=== PATIENT | female | born 2000 | race Caucasian/White ===

== ENCOUNTER 2020-06-30 06:58 | Outpatient (REF) | payer OTHER, SELFPAY ==
[2020-06-30 07:29] LABS: COVID-19 Test Negative (Negative); IDNOW Serial# 55D5AD1C
== END 2020-06-30 06:59 | disposition home or self-care (01) ==
LOC: HO.LAB 06:58
PROVIDERS: Visit Provider Internal Medicine
DX: Z20.828 Contact with and (suspected) exposure to other viral communicable diseases (principal)
CPT/HCPCS: 87635; C9803

== ENCOUNTER 2020-07-26 07:12 | Outpatient (REF) | payer OTHER, SELFPAY ==
[2020-07-26 07:50] LABS: IDNOW Serial# 9DD0AD1C
[2020-07-26 07:55] LABS: COVID-19 Test Positive (Negative)
== END 2020-07-26 07:13 | disposition home or self-care (01) ==
LOC: HO.EMPCOV 07:12
PROVIDERS: Visit Provider Internal Medicine
DX: Z20.828 Contact with and (suspected) exposure to other viral communicable diseases (principal)
CPT/HCPCS: 87635

== ENCOUNTER 2020-08-07 11:26 | Outpatient (REF) | payer OTHER, SELFPAY ==
[2020-08-07 13:01] LABS: Alanine Aminotransferase 23 U/L (0-31); Albumin Level 4.3 g/dL (3.5-5.0); Alkaline Phosphatase 61 U/L (39-117); Aspartate Amino Transferase 22 U/L (5-31); Bilirubin Direct < 0.2 mg/dL (0.0-0.5); Bilirubin Total 0.2 mg/dL (0.0-1.0); Cholesterol 228 mg/dL; HDL Cholesterol 59 mg/dL; LDL Cholesterol Calculated 116 mg/dl; Total Protein 7.3 g/dL (6.5-8.0); Triglycerides 269 mg/dL
[2020-08-07 13:08] LABS: HCG Quantitative < 2 mIU/mL
[2020-08-07 13:49] LABS: Reflex LDLD? No
== END 2020-08-07 11:27 | disposition home or self-care (01) ==
LOC: HO.LAB 11:26
PROVIDERS: PCP Physician Assistant; Visit Provider Physician Assistant Medical
DX: L70.0 Acne vulgaris (principal); Z79.899 Other long term (current) drug therapy
CPT/HCPCS: 36415; 80061; 80076; 84702

== ENCOUNTER 2020-12-21 11:39 | Outpatient (REF) | payer OTHER, SELFPAY ==
[2020-12-21 13:44] LABS: Alanine Aminotransferase 12 U/L (0-31); Albumin Level 4.3 g/dL (3.5-5.0); Alkaline Phosphatase 77 U/L (39-117); Aspartate Amino Transferase 23 U/L (5-31); Bilirubin Direct 0.2 mg/dL (0.0-0.5); Bilirubin Total 0.6 mg/dL (0.0-1.0); Cholesterol 247 mg/dL; HDL Cholesterol 65 mg/dL; LDL Cholesterol Calculated 148 mg/dl; Total Protein 7.4 g/dL (6.5-8.0); Triglycerides 170 mg/dL
== END 2020-12-21 11:40 | disposition home or self-care (01) ==
LOC: HO.LAB 11:39
PROVIDERS: PCP Physician Assistant; Visit Provider Physician Assistant Medical
DX: L70.0 Acne vulgaris (principal); L85.3 Xerosis cutis; E78.00 Pure hypercholesterolemia, unspecified; Z79.899 Other long term (current) drug therapy
CPT/HCPCS: 36415; 80061; 80076

== ENCOUNTER 2021-02-22 09:28 | Outpatient (REF) | payer OTHER, SELFPAY ==
[2021-02-22 14:35] LABS: CT PCR NOT DETECTED (Not Detect.); NG PCR NOT DETECTED (Not Detect.)
[2021-02-23 10:47] LABS: BV Int Neg Control Negative (Negative); BV Int Pos Control Positive (Positive)
== END 2021-02-22 09:29 | disposition home or self-care (01) ==
LOC: HO.LAB 09:28
PROVIDERS: PCP Physician Assistant; Visit Provider Advanced Practice Midwife
DX: Z01.419 Encounter for gynecological examination (general) (routine) without abnormal findings (principal); Z11.3 Encounter for screening for infections with a predominantly sexual mode of transmission; L65.9 Nonscarring hair loss, unspecified
CPT/HCPCS: 87480; 87491; 87510; 87591; 87660; 88142

== ENCOUNTER 2021-02-23 10:53 | Outpatient (REF) | payer OTHER, SELFPAY | END 2021-02-23 10:54 | disposition home or self-care (01) | LOC: HO.LAB 10:53 | PROVIDERS: Visit Provider Advanced Practice Midwife | DX: Z13.89 Encounter for screening for other disorder (principal) ==

== ENCOUNTER 2021-03-04 12:13 | Outpatient (REF) | payer OTHER, SELFPAY ==
[2021-03-04 13:47] LABS: Thyroid Stimulating Hormone 0.98 uIU/mL (0.32-4.0)
== END 2021-03-04 12:14 | disposition home or self-care (01) ==
LOC: HO.LAB 12:13
PROVIDERS: PCP Physician Assistant; Visit Provider Advanced Practice Midwife
DX: L65.9 Nonscarring hair loss, unspecified (principal)
CPT/HCPCS: 36415; 84443

== ENCOUNTER 2022-02-11 18:16 | Outpatient (REF) | payer OTHER, SELFPAY | END 2022-02-11 18:17 | disposition home or self-care (01) | LOC: HO.LNP 18:16 | PROVIDERS: Visit Provider Nurse Practitioner Family | DX: J02.9 Acute pharyngitis, unspecified (principal) | CPT/HCPCS: 87071 ==

== ENCOUNTER 2022-02-15 11:01 | Outpatient (REF) | payer OTHER, SELFPAY ==
[2022-02-15 11:18] LABS: MANUAL DIFF FLAG NO
[2022-02-15 12:33] LABS: Basophils Percent Auto 0.4 % (0-2); Eosinophils Absolute Auto 0.1 X10*3/uL (0.0-0.4); Eosinophils Percent Auto 0.7 % (0-4); Hematocrit 39.1 % (37.0-47.0); Hemoglobin 13.4 g/dl (12.0-16.0); Imm Gran Abs Auto 0.02 X10*3/uL (0.00-0.03); Imm Gran Pct Auto 0.3 % (0.0-0.4); Lymphocytes Absolute Auto 2.8 X10*3/uL (1.2-4.9); Lymphocytes Percent Auto 39.4 % (20-40); Mean Corpuscular HGB Conc 34.3 g/dl (31.0-35.0); Mean Corpuscular Hemoglobin 30.7 pg (27.0-33.0); Mean Corpuscular Volume 89.7 fL (80.0-98.0); Mean Platelet Volume 9.7 fL (9.4-12.3); Monocytes Absolute Auto 0.7 X10*3/uL (0.1-1.2); Monocytes Percent Auto 9.5 % (2-11); Neutrophils Absolute Auto 3.6 x10*3/uL (2.0-8.3); Neutrophils Percent Auto 49.7 % (45-73); Platelet Count 334 X10*3/uL (160-400); Red Blood Count 4.36 X10*6/uL (4.20-5.50); Red Cell Distribution Width 12.2 % (11.0-16.0); White Blood Count 7.2 X10*3/uL (4.8-10.8)
[2022-02-15 12:59] LABS: Alanine Aminotransferase 9 U/L (0-31); Albumin Level 4.4 g/dL (3.5-5.0); Alkaline Phosphatase 51 U/L (39-117); Anion Gap 14 (12-20); Aspartate Amino Transferase 16 U/L (5-31); Bilirubin Total 0.3 mg/dL (0.0-1.0); Blood Urea Nitrogen 11 mg/dL (9-16); Calcium 9.3 mg/dL (8.4-10.2); Carbon Dioxide 24 mmol/L (22-29); Chloride 104 mmol/L (96-108); Estimated Glomerular Filt Rate > 60; Glucose Fasting 80 mg/dL (60-99); Potassium 4.7 mmol/L (3.3-5.1); Sodium 137 mmol/L (135-145); Total Protein 7.4 g/dL (6.5-8.0)
[2022-02-15 13:26] LABS: TSH reflex Free T4 1.39 uIU/mL (0.32-4.0); Vitamin D 25-OH Total 55.6 ng/mL (>30)
[2022-02-15 13:28] LABS: Folate 16.5 ng/mL (> or = 4.0); Vitamin B12 216 pg/mL (200-900)
[2022-02-17 23:32] LABS: TS Negative Control Passed; TS Panel A 0; TS Panel B 0; TS Positive Control Passed; TSpotTB Negative (Negative)
== END 2022-02-15 11:02 | disposition home or self-care (01) ==
LOC: HO.LAB 11:01
PROVIDERS: PCP Nurse Practitioner Family; Visit Provider Nurse Practitioner Family
DX: Z00.00 Encounter for general adult medical examination without abnormal findings (principal); Z13.1 Encounter for screening for diabetes mellitus; Z13.29 Encounter for screening for other suspected endocrine disorder; J02.9 Acute pharyngitis, unspecified
CPT/HCPCS: 36415; 80053; 82306; 82607; 82746; 84443; 85025; 86481

== ENCOUNTER 2022-02-18 14:58 | Outpatient (REF) | payer OTHER, SELFPAY ==
[2022-02-21 08:06] LABS: HBS Num1 3.86 mIU/mL (0-7.99); HBc Num1 0.05 S/CO (0.00-0.79); HBsAGNum1 0.16 S/CO (0.00-0.99); Hepatitis B Core Antibody Nonreactive (Nonreactive); Hepatitis B Surface Antigen Negative (Negative); ~HepC Num1 0.05 S/CO (0.00-0.79); ~Hepatitis B Surface Antibody NONREACTIVE (Nonreactive); ~Hepatitis C Antibody Nonreactive (Nonreactive)
[2022-02-21 17:12] LABS: Mumps Virus IgG Antibody >300.00 AU/mL; Rubella IgG Antibody 1.38 Index; Rubeola IgG (Measles) >300.00 AU/mL; Varicella IgG Antibody <135.00 index
== END 2022-02-18 14:59 | disposition home or self-care (01) ==
LOC: HO.LAB 14:58
PROVIDERS: PCP Nurse Practitioner Family; Visit Provider Nurse Practitioner Family
DX: Z01.84 Encounter for antibody response examination (principal)
CPT/HCPCS: 36415; 86704; 86706; 86735; 86762; 86765; 86787; 86803; 87340

== ENCOUNTER 2022-04-27 10:35 | Outpatient (REF) | payer OTHER, SELFPAY | END 2022-04-27 10:36 | disposition home or self-care (01) | LOC: HO.LAB 10:35 | PROVIDERS: PCP Nurse Practitioner Family; Visit Provider Nurse Practitioner Family | DX: Z01.84 Encounter for antibody response examination (principal) | CPT/HCPCS: 36415; 86787 ==

== ENCOUNTER 2022-10-31 12:38 | Outpatient (REF) | payer OTHER, SELFPAY ==
[2022-11-02 07:31] LABS: HBS Num1 > 1000.00 mIU/mL (0-7.99); HBc Num1 0.04 S/CO (0.00-0.79); HBsAGNum1 0.33 S/CO (0.00-0.99); Hepatitis B Core Antibody Nonreactive (Nonreactive); Hepatitis B Surface Antigen Negative (Negative); ~HepC Num1 0.07 S/CO (0.00-0.79); ~Hepatitis B Surface Antibody REACTIVE (Nonreactive); ~Hepatitis C Antibody Nonreactive (Nonreactive)
[2022-11-03 00:53] LABS: TS Negative Control Passed; TS Panel A 1; TS Panel B 0; TS Positive Control Passed; TSpotTB Negative (Negative)
== END 2022-10-31 12:39 | disposition home or self-care (01) ==
LOC: HO.LAB 12:38
PROVIDERS: Absent Provider Nurse Practitioner Family; PCP Nurse Practitioner Family; Visit Provider Nurse Practitioner Family
DX: Z01.84 Encounter for antibody response examination (principal); Z11.1 Encounter for screening for respiratory tuberculosis
CPT/HCPCS: 36415; 86481; 86704; 86706; 86803; 87340

== ENCOUNTER 2023-02-15 14:02 | Outpatient (AMB) | payer OTHER, SELFPAY ==
[2023-02-15 14:05] VITALS: BP 102/68; PULSE 66; O2SAT 99; BMI 19.7
--- NOTE | 2023-02-15 14:05 | A.OFFPC_ITS ---
Vital Signs 02/15/23 14:05 Height 5 ft 4 in Weight 115 lb BMI 19.7 BP 102/68 Blood Pressure Location Lt brachial Position Sitting Pulse 66 Pulse Source Pulse Oximeter Temp Source Skin Pulse Oximetry (%) 99 Oxygen Delivery Method Room Air Intake Visit Reasons: PE Intake Note: Patient is here today for a physical. Reference Test Clerk Required: No Allergies No Known Allergies [No Known Allergies*] Allergy (Verified 02/15/23 14:15) Medication List - Last Reconciled 02/15/23 by JENNIFER Calderon drospirenone-ethinyl estradiol 3-0.02 mg (Skylar (28)) 1 tab PO DAILY Tobacco use date assessed: 02/15/23 Dental Screening Dental Screen Date: 02/15/23 Did you have a dental visit in the last 12 months?: Yes Did you have a dental problem in the last 6 months where you did not have access to dental care?: No Was dental information given to patient?: Patient has dentist HPI PE HPI Details Patient is a 22-year-old female who presents today for physical exam. No significant past medical history. Pap smear normal 01/2021 with [facility]. Patient has an upcoming eye exam 02/2023. Patient reports 2 maternal aunts with breast cancer and 1 aunt also with colon cancer, will refer for genetic testing. Patient reports that her mother is on tamoxifen, no diagnosis of breast cancer. No shortness of breath or chest pain. Up-to-date with immunizations. [facility], [facility] Medical History (Updated 02/15/23 @ 14:35 by JENNIFER Calderon) Acute sinusitis Dog bite Surgical History H/O elbow surgery Previous back surgery [place] teeth extracted Family History Father HTN (hypertension) Maternal Aunt Breast cancer Colon cancer Maternal Aunt Breast cancer Mother BRCA negative Social History Housing: House Alcohol intake: never Patient Tobacco Use Status: Never used Tobacco service: No Current occupational status: employed Sexual orientation: Straight/Heterosexual Gender identity: Female Cognitive needs: No Hearing needs: No Vision needs: Yes (contacts) Female Reproductive History Menstrual Age of Menarche: 16 Questionnaire PHQ-9 Over the last 2 weeks, how often have you been bothered by any of the following problems? 1. Little interest or pleasure in doing things: not at all 2. Feeling down, depressed, or hopeless: not at all 3. Trouble falling or staying asleep, or sleeping too much: not at all 4. Feeling tired or having little energy: not at all 5. Poor appetite or overeating: not at all 6. Feeling bad about yourself - or that you are a failure or have let yourself or your family down: not at all 7. Trouble concentrating on things, such as reading the newspaper or watching t elevision: not at all 8. Moving or speaking so slowly that other people could have noticed. Or the opposite - being so fidgety or restless that you have been moving around a lot more than usual: not at all 9. Thoughts that you would be better off or of hurting yourself in some way: not at all Total score: 0 Depression Screening Interpretation: Negative 86073 - PHQ-9 Billing: Yes Source: Developed by Drs. Abbe Estrada, Maryse Li, Keny Christopher and colleagues, with an educational randy from [employer]. Thrive Questionnaire Date Thrive assessed: 02/15/23 I am a: Patient What is your living situation today?: I have a steady place to live Within the past 12 months, did the food you bought not last and you didn't have the money to get more?: Never true Within the past 12 months, did you worry whether your food would run out before you got money to buy more?: Never true Do you have trouble paying for medicines?: No Do you have trouble getting transportation to medical appointments?: No Do you have trouble paying your heating and electricity bill?: No Do you have trouble taking care of your child, family member or friend?: No Do you have trouble with day-to-day activities such as bathing, preparing meals, shopping, managing finances, etc.?: No Are you currently unemployed and looking for a job?: No Are you interested in more education?: No Currently or been in a relationship where the following occur: no concerns reported AUDIT C Alcohol Use Questionnaire (AUDIT-C) 1. How often do you have a drink containing alcohol?: Never 3. How often do you have six or more drinks on one occasion?: Never Total Score: 0 Score Reviewed/Action Taken: No MADALYN-7 AMB Questionnaire MADALYN-7 Date MADALYN - 7 assessed: 02/15/23 Feeling nervous, anxious, or on edge: 0 = Not at all Not being able to stop or control worryin = Not at all Worrying too much about different things: 0 = Not at all Trouble relaxin = Not at all Being so restless that it is hard to sit still: 0 = Not at all Becoming easily annoyed or irritable: 0 = Not at all Feeling afraid as if something awful might happen: 0 = Not at all Total MADALYN-7 score (0-4 normal; 5-9 mild; 10-14 moderate; 15-21 severe): 0 Source: Developed by Drs. Abbe Estrada, Maryse Li, Keny Christopher and colleagues, with an educational randy from [employer]. MADALYN-7 Assessment Billing MADALYN-7 Assessment Tool: MADALYN-7 Assessment 46745 Review of Systems Const Denies body aches, Denies chills, Denies fever(s) and Denies headache(s) Eyes Details: Wears contact lenses ENT Denies dizziness, Denies otalgia, Denies headache(s), Denies nasal discharge, Denies sinus pain and Denies sore throat Card Denies chest pain, Denies edema, Denies lightheadedness and Denies dyspnea Resp Denies cough and Denies dyspnea GI Denies constipation, Denies diarrhea, Denies nausea and Denies vomiting Denies dysuria Musc Denies myalgias Skin/Breast Denies rash Neuro Denies dizziness and Denies headache(s) Physical exam (Primary Care) Vital Signs: Last Vital Signs Pulse 66 02/15/23 14:05 BP 102/68 02/15/23 14:05 Pulse Ox 99 02/15/23 14:05 Oxygen Delivery Method Room Air 02/15/23 14:05 BMI result Body Mass Index 19.7 Tobacco/Smoking Status: Tobacco use Status Tobacco use date assessed 02/15/23 02/15/23 14:10 Patient Tobacco Use Status Never used Tobacco 02/15/23 14:10 PHQ-9: PHQ-9 Score PHQ-9: Total score 0 02/15/23 14:10 Depression Screening Interpretation: Negative Thrive Assessment: Date of Thrive Assessment Date Thrive assessed 02/15/23 02/15/23 14:10 Currently or been in a relationship where the following occur: no concerns reported Const General: cooperative and no acute distress Orientation/consciousness: patient oriented x3 HENMT Head: Yes normocephalic and Yes atraumatic Ears: TM's normal bilaterally Face and sinus: Yes sinuses nontender Mouth: oropharynx normal and moist mucous membranes Throat: Yes posterior oropharynx normal Eyes General: appearance normal, both eyes and all related structures Pupils: Equal, round and reactive pupils present EOM: EOMs intact bilaterally Neck Neck: Yes normal visual inspection, Yes full ROM and Yes no lymphadenopathy Thyroid: Thyroid normal Resp Effort & Inspection: normal respiratory effort and able to speak in complete sentences Auscultation: clear to auscultation bilaterally, no crackles, no rales, no rhonchi and no wheezes Cardio Rate: regular rate Rhythm: regular rhythm Heart sounds: S1 normal heart sound present, S2 normal heart sound present and no murmurs GI Palpation (GI): Soft to palpation, not firm, nontender, no guarding, not rigid and no hepatosplenomegaly Auscultation: normal bowel sounds General: No CVA tenderness Back/Spine/Pelvis Back: No CVA tenderness Skin General skin exam: no rashes or lesions noted Neuro General: patient oriented x3 Cranial nerves: Yes Equal, round and reactive pupils present Gait exam (Neuro): Normal gait present Extrem General: Yes full ROM and No edema Assessment and Plan Assessment & Plan (1) Genetic testing of female: Code(s): Z13.79 - Encounter for other screening for genetic and chromosomal anomalies Plan: See HPI for details Will refer to general surgery for genetic testing (2) Screening for hypothyroidism: Code(s): Z13.29 - Encounter for screening for other suspected endocrine disorder (3) Adult general medical exam: Code(s): Z00.00 - Encounter for general adult medical examination without abnormal findings Plan: Repeat 1 year Orders: Orders Vitamin B12 and Folate Today Z00.00 - Encounter for general adult medical examination without abnormal findings Comprehensive Met. Panel Today Z00.00 - Encounter for general adult medical examination without abnormal findings TSH reflex Free T4 Today Z13. - Encounter for screening for other suspected endocrine disorder Vitamin D 25-OH Total Today Z00.00 - Encounter for general adult medical examination without abnormal findings Complete Blood Count Auto Diff Today Z00.00 - Encounter for general adult medical examination without abnormal findings Referrals General Surgery Referral Z13.79 - Encounter for other screening for genetic and chromosomal anomalies Coding Level of Care Code Est Pt Prev Care 18-39y(98990) Diagnoses Genetic testing of female Z13.79 Screening for hypothyroidism Z13.29 Adult general medical exam Z00.00 Additional Codes MADALYN-7 Assessment Billing - MADALYN-7 Assessment Tool: MADALYN-7 Assessment [id number] ([id number])
== END 2023-02-15 14:30 | disposition home or self-care (01) ==
PROVIDERS: PCP Nurse Practitioner Family; Visit Provider Nurse Practitioner Family
DX: Z13.79 Encounter for other screening for genetic and chromosomal anomalies (principal); Z13.29 Encounter for screening for other suspected endocrine disorder; Z00.00 Encounter for general adult medical examination without abnormal findings
CPT/HCPCS: 99395

== ENCOUNTER 2023-02-22 10:26 | Outpatient (REF) | payer OTHER, SELFPAY ==
[2023-02-22 10:36] LABS: MANUAL DIFF FLAG NO
[2023-02-22 11:02] LABS: Basophils Percent Auto 0.6 % (0-2); Eosinophils Percent Auto 0.6 % (0-4); Hematocrit 37.8 % (37.0-47.0); Hemoglobin 12.8 g/dl (12.0-16.0); Imm Gran Abs Auto 0.02 X10*3/uL (0.00-0.03); Imm Gran Pct Auto 0.3 % (0.0-0.4); Lymphocytes Absolute Auto 2.5 X10*3/uL (1.2-4.9); Lymphocytes Percent Auto 35.7 % (20-40); Mean Corpuscular HGB Conc 33.9 g/dl (31.0-35.0); Mean Corpuscular Hemoglobin 30.8 pg (27.0-33.0); Mean Corpuscular Volume 90.9 fL (80.0-98.0); Mean Platelet Volume 9.1 fL (9.4-12.3); Monocytes Absolute Auto 0.6 X10*3/uL (0.1-1.2); Monocytes Percent Auto 8.9 % (2-11); Neutrophils Absolute Auto 3.7 x10*3/uL (2.0-8.3); Neutrophils Percent Auto 53.9 % (45-73); Platelet Count 304 X10*3/uL (160-400); Red Blood Count 4.16 X10*6/uL (4.20-5.50); Red Cell Distribution Width 11.6 % (11.0-16.0); White Blood Count 6.9 X10*3/uL (4.8-10.8)
[2023-02-22 11:54] LABS: Alanine Aminotransferase 10 U/L (0-31); Albumin Level 4.1 g/dL (3.5-5.0); Alkaline Phosphatase 53 U/L (39-117); Anion Gap 12 (12-20); Aspartate Amino Transferase 15 U/L (5-31); Bilirubin Total 0.2 mg/dL (0.0-1.0); Blood Urea Nitrogen 15 mg/dL (9-16); Calcium 9.3 mg/dL (8.4-10.2); Carbon Dioxide 26 mmol/L (22-29); Chloride 105 mmol/L (96-108); Estimated Glomerular Filt Rate > 60; Glucose Random 107 mg/dL (60-115); Potassium 4.2 mmol/L (3.3-5.1); Sodium 139 mmol/L (135-145); Total Protein 7.3 g/dL (6.5-8.0)
[2023-02-22 12:17] LABS: TSH reflex Free T4 1.16 uIU/mL (0.32-4.0); Vitamin D 25-OH Total 66.5 ng/mL (>30)
[2023-02-22 12:29] LABS: Vitamin B12 230 pg/mL (200-900)
== END 2023-02-22 10:27 | disposition home or self-care (01) ==
LOC: HO.LAB 10:26
PROVIDERS: PCP Nurse Practitioner Family; Visit Provider Nurse Practitioner Family
DX: Z00.00 Encounter for general adult medical examination without abnormal findings (principal); Z13.29 Encounter for screening for other suspected endocrine disorder; Z20.2 Contact with and (suspected) exposure to infections with a predominantly sexual mode of transmission
CPT/HCPCS: 36415; 80053; 82306; 82607; 82746; 84443; 85025

== ENCOUNTER 2023-03-24 11:00 | Outpatient (REF) | payer OTHER, SELFPAY ==
[2023-03-24 18:22] LABS: CT PCR NOT DETECTED (Not Detect.); NG PCR NOT DETECTED (Not Detect.)
[2023-03-26 13:31] LABS: BV Int Neg Control Negative (Negative); BV Int Pos Control Positive (Positive)
== END 2023-03-24 11:01 | disposition home or self-care (01) ==
LOC: HO.LNP 11:00
PROVIDERS: PCP Nurse Practitioner Family; Visit Provider Advanced Practice Midwife
DX: Z01.419 Encounter for gynecological examination (general) (routine) without abnormal findings (principal); N92.1 Excessive and frequent menstruation with irregular cycle; Z20.2 Contact with and (suspected) exposure to infections with a predominantly sexual mode of transmission
CPT/HCPCS: 0353U; 87480; 87510; 87660

== ENCOUNTER 2023-03-24 11:00 | Outpatient (AMB) | payer OTHER, SELFPAY ==
[2023-03-24 11:04] VITALS: BMI 19.7
--- NOTE | 2023-03-24 11:04 | A.OFFVIS_ITS ---
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 She is not having any abe teacher conc erns it is working out for her to take the pills with of pill free week between 2 cycles so that she gets a period about every 2 months sometime she will let it go 3 months. She is managing the breakthrough bleeding best in this way. 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 She has no concerns about STDs but accepts testing with the pelvic exam but does not need blood work. She has a strong family he of breast cancer and is set up for genetic testing and counseling with Dr. Ortega in upcoming days before she starts back at school. She cycles for exercise and does things with her friends and classmates for relaxation. [facility] Medical History Acute sinusitis Dog bite Surgical History H/O elbow surgery Previous back surgery [place] teeth extracted Family History Father HTN (hypertension) Maternal Aunt Breast cancer Colon cancer Maternal Aunt Breast cancer Mother BRCA negative Social History Housing: House Alcohol intake: never Patient Tobacco Use Status: Never used Tobacco service: No Current occupational status: employed Sexual orientation: Straight/Heterosexual Gender identity: Female Cognitive needs: No Hearing needs: No Vision needs: Yes (contacts) Female Reproductive History Menstrual Age of Menarche: 16 Duration of menses: 3-5 days Date of last menstrual period: 02/13/23 control method: pills Total pregnancies: 0 Date of last pap smear: 02/24/21 (negative) Physical Exam Vital Signs: BMI result Body Mass Index 19.7 Const General: healthy appearing, comfortable, no acute distress, well developed and alert Nutritional Appearance: average body habitus Orientation/consciousness: patient oriented x3 Limitations: no limitations HEENT Head: Yes normocephalic Neck Neck: Yes normal visual inspection Chest Chest palpation & inspection: normal inspection of the chest Breast/axilla inspection: normal inspection of the breasts and normal inspection of the axillae Breast/axilla palpation: normal palpation of the breasts and normal palpation of the axillae Resp Effort & Inspection: normal respiratory effort GI Inspection: Yes normal to inspection, No Abdominal wall edema and No distended Palpation (GI): Soft to palpation and nontender Other: Normal external exam vagina pink moist healthy very normal healthy appearing whitish mucus cervix nulliparous uterus small midposition to anteverted, nontender mobile. adnexa nontender mobile General: Yes bladder normal to palpation External Female Exam: normal external appearance and normal appearance of the urethra Speculum Exam - Vagina: normal appearance of the vagina, normal palpation and normal vaginal discharge Speculum Exam - Cervix: normal appearance of the cervix, normal palpation and nontender Bimanual exam- vagina & uterus: normal bimanual exam, normal palpation, uterine size normal, bladder normal to palpation, consistency normal, normal palpation, uterine mobility normal, uterine shape normal, No Cervical tenderness present, non-tender and no cervical motion tenderness Bimanual Exam- Adnexa, other: normal adnexae, no masses, normal and No adnexal tenderness Neuro General: patient oriented x3 Results Reviewed Results Reviewed: Name:Jocelyn Martinez Age/Sex: 20/F Attending: Luz Maria Rick CNM : 2000 Submitted by: Luz Maria Rick CNM Copies to: MR #: [id number] ? Status: DEP REF Collected: 02/22/21 Location: .LAB Received: 02/24/21 Interpretation Satisfactory for evaluation. No endocervical cells seen. Cytolysis noted. Negative for intraepithelial lesion or malignancy. Clinical Information LMP: 01/19/2021 Previous PAP test: None Material Received ThinPrep cervical Electronically Signed By: SARAH Rider (ASCP) ? 02/25/21 1056 The Pap Test is a screening procedure with the inherent possibility of both false negative and false positive results.? Results should be interpreted in the context of historic and current clinical findi Assessment & Plan Assessment & Plan (1) Breakthrough bleeding on OCPs: Code(s): N92.1 - Excessive and frequent menstruation with irregular cycle (2) Counseling for control, oral contraceptives: Code(s): Z30.09 - Encounter for other general counseling and advice on contraception (3) Cervical cancer screening: Comment: negative pap 2020, at age 20, next Pap 2023. Code(s): Z12.4 - Encounter for screening for malignant neoplasm of cervix (4) Well woman exam with routine gynecological exam: Code(s): Z01.419 - Encounter for gynecological examination (general) (routine) without abnormal findings (5) Screen for sexually transmitted diseases: Code(s): Z11.3 - Encounter for screening for infections with a predominantly sexual mode of transmission Plan -----Discussed in this visit the following: healthy balanced diet, regular and consistent exercise, getting recommended health screens, doing the best she can for her particular health concerns, kegel exercises, pap smear screening and followup recommendations, mammography screening and SBE, normal changes in cycles in her life stage--- . Reviewed how she is taking the pills she is doing really well with this regimen and she is manipulating when she decides to have a withdrawal bleed in a way that works well for her. Reviewed all the issues with school she is doing really well she is taking care of herself she is about to be going for screening counseling visit in Dr. Ortega is a office to decide if she wants to get genetic testing for familial history of breast cancer though no one has had the BRCA gene as far she knows . She will be due for her next Pap smear in 2023. She excepted testing for GC chlamydia trich Gardnerella and [place] with the pelvic exam but declines blood work. Script for control pills sent to her [facility] closer to school. RTC 1 year. Orders: Orders Bacterial Vaginosis Panel Today Z01.419 - Encounter for gynecological examination (general) (routine) without abnormal findings CT NG by PCR Today Z01.419 - Encounter for gynecological examination (general) (routine) without abnormal findings Medications: Refilled drospirenone-ethinyl estradiol 3-0.02 mg (Skylar (28)) Patient and I spoke at the last visit about alternating 2 months of continuous pills, then 1 month with a withdrawal bleed scheduled with placebo pills. 1 tab PO DAILY 84 tabs 4RF Coding Level of Care Code Est Pt Prev Care 18-39y(31521) Diagnoses Breakthrough bleeding on OCPs N92.1 Counseling for control, oral contraceptives Z30.09 Cervical cancer screening Z12.4 Well woman exam with routine gynecological exam Z01.419 Screen for sexually transmitted diseases Z11.3
== END 2023-03-24 12:10 | disposition home or self-care (01) ==
LOC: HO.HWS 11:00
PROVIDERS: PCP Nurse Practitioner Family; Visit Provider Advanced Practice Midwife
DX: Z01.419 Encounter for gynecological examination (general) (routine) without abnormal findings (principal); N92.1 Excessive and frequent menstruation with irregular cycle; Z30.09 Encounter for other general counseling and advice on contraception; Z12.4 Encounter for screening for malignant neoplasm of cervix; Z11.3 Encounter for screening for infections with a predominantly sexual mode of transmission
CPT/HCPCS: 99395

== ENCOUNTER 2023-03-28 09:29 | Outpatient (AMB) | payer OTHER, SELFPAY ==
--- NOTE | 2023-03-28 09:31 | A.OFFVIS_ITS ---
Intake Vital Signs 03/28/23 09:40 Height 5 ft 4 in Weight 117 lb 4.575 oz BMI 20.1 BP 100/62 Blood Pressure Location Lt brachial Position Sitting Intake Visit Reasons: Genetic Consult Intake Note: Patient is seen in office for genetic testing counsult. 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 She denies any breast symptoms or previous breast problems. Her family history is significant for 2 aunts with history of breast cancer, 1 of which developed metastatic colon cancer. Her mom has not had breast cancer and was previously tested for BRCA and was determined to be negative. 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 [facility] Medical History Acute sinusitis Dog bite Surgical History H/O elbow surgery Previous back surgery [place] teeth extracted Family History Father HTN (hypertension) Maternal Aunt Breast cancer, Onset Age: 47 Colon cancer Maternal Aunt Breast cancer Mother BRCA negative Social History Housing: House Alcohol intake: never Patient Tobacco Use Status: Never used Tobacco service: No Current occupational status: employed Sexual orientation: Straight/Heterosexual Gender identity: Female Cognitive needs: No Hearing needs: No Vision needs: Yes (contacts) Female Reproductive History Menstrual Age of Menarche: 16 Review of Systems Const All systems reviewed & are unremarkable except as noted in HPI and below Physical Exam Vital Signs: Last Vital Signs BP 100/62 03/28/23 09:40 BMI result Body Mass Index 20.1 Const General: comfortable and no acute distress Nutritional Appearance: well nourished Orientation/consciousness: patient oriented x3 Limitations: no limitations HEENT Head: Yes normocephalic and Yes atraumatic Chest Other: Exam deferred Resp Effort & Inspection: normal respiratory effort, no audible wheezes, no cough and no respiratory distress GI Inspection: Yes normal to inspection Skin General skin exam: no rashes or lesions noted Neuro General: patient oriented x3 Extrem General: Yes normal to inspection Assessment & Plan Assessment & Plan (1) Genetic testing of female: Code(s): Z13.79 - Encounter for other screening for genetic and chromosomal anomalies (2) Family history of breast cancer: Code(s): Z80.3 - Family history of malignant neoplasm of breast (3) Family history of colon cancer: Code(s): Z80.0 - Family history of malignant neoplasm of digestive organs Plan 22-year-old female patient presenting with strong family history of breast cancer and colon cancer. She is at increased risk for both breast and colon cancer due to family history. We reviewed the genetic testing process, risks and benefits. She expressed understanding and wishes to proceed with the testing today. She will return in 5-6 weeks to review the results and discuss the recommendations. Coding Level of Care Code New Pt Level 3 (58749) Diagnoses Genetic testing of female Z13.79 Family history of breast cancer Z80.3 Family history of colon cancer Z80.0
[2023-03-28 09:40] VITALS: BP 100/62; BMI 20.1
== END 2023-03-28 09:55 | disposition home or self-care (01) ==
PROVIDERS: PCP Nurse Practitioner Family; Referring Provider Nurse Practitioner Family; Visit Provider Surgery
DX: Z13.79 Encounter for other screening for genetic and chromosomal anomalies (principal); Z80.3 Family history of malignant neoplasm of breast; Z80.0 Family history of malignant neoplasm of digestive organs
CPT/HCPCS: 99203

== ENCOUNTER → 2023-03-28 09:29 | Outpatient (BNVA) | payer OTHER, SELFPAY | PROVIDERS: PCP Nurse Practitioner Family; Referring Provider Nurse Practitioner Family; Visit Provider Surgery ==

== ENCOUNTER 2023-04-27 10:23 | Outpatient (AMB) | payer OTHER, SELFPAY ==
--- NOTE | 2023-04-27 10:23 | A.OFFVIS_ITS ---
Intake Vital Signs 04/27/23 10:28 Height 5 ft 4 in Weight 117 lb 2 oz BMI 20.1 BP 113/64 Blood Pressure Location Lt brachial Position Sitting Pulse 72 Intake Visit Reasons: Genetic test results *Here* Intake Note: Patient is seen in office for genetic testing results. Patient c/o: no concerns or changes, here for results. Deputy Coroner Required: No Accompanied by: Self / Same As Patient Allergies No Known Allergies [No Known Allergies*] Allergy (Verified 04/27/23 10:24) Medication List - Last Reconciled 04/27/23 by Santo Ortega MD drospirenone-ethinyl estradiol 3-0.02 mg (Skylar (28)) 1 tab PO DAILY HPI HPI Comments History of Present Illness Details 22-year-old female patient presenting fo r genetic testing due to a strong family history of breast cancer. She denies any breast symptoms or previous breast problems. Her family history is significant for 2 aunts with history of breast cancer, 1 of which developed metastatic colon cancer. Her mom has not had breast cancer and was previously tested for BRCA and was determined to be negative. 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 She returns today to review the genetic testing performed on 03/28/2023. Genetic testing revealed no clinically significant mutations identified. Her breast cancer risk score was calculated at 11.6 %, below the 20% threshold placing her at high risk for breast cancer. No variance of uncertain significance (VUS) were identified. Based on her clinical history, she was felt to be at elevated risk for colon cancer due to her maternal aunt diagnosis of metastatic colon cancer at the age of 47. Early colonoscopy was recommended at least by the age of 45. A copy of the genetic testing report was provided to the patient for her records. [facility] Medical History Dog bite Acute sinusitis Surgical History [place] teeth extracted Previous back surgery H/O elbow surgery Family History Father HTN (hypertension) Maternal Aunt Breast cancer, Onset Age: 47 Colon cancer Maternal Aunt Breast cancer Mother BRCA negative Social History Housing: House Alcohol intake: never Patient Tobacco Use Status: Never used Tobacco service: No Current occupational status: employed Sexual orientation: Straight/Heterosexual Gender identity: Female Cognitive needs: No Hearing needs: No Vision needs: Yes (contacts) Female Reproductive History Menstrual Age of Menarche: 16 Review of Systems Const All systems reviewed & are unremarkable except as noted in HPI and below Physical Exam Vital Signs: Last Vital Signs Pulse 72 04/27/23 10:28 BP 113/64 04/27/23 10:28 BMI result Body Mass Index 20.1 Const General: comfortable and no acute distress Nutritional Appearance: well nourished Orientation/consciousness: patient oriented x3 Limitations: no limitations Chest Other: Exam deferred Resp Effort & Inspection: normal respiratory effort Skin General skin exam: no rashes or lesions noted Neuro General: patient oriented x3 Extrem General: Yes normal to inspection Assessment & Plan Assessment & Plan (1) Family history of colon cancer: Code(s): Z80.0 - Family history of malignant neoplasm of digestive organs (2) Family history of breast cancer: Code(s): Z80.3 - Family history of malignant neoplasm of breast Plan 22-year-old female patient returning to review the genetic testing. No mutations of clinical significance were identified and no variance of uncertain significance were identified. Her breast cancer risk score was calculated at 11.6% which is below the 20% threshold placing her at high risk. I would still recommend she perform self examinations on a monthly basis and consider baseline mammograms at the age of 30 to 35. Early colonoscopy is also recommended as noted above. She is welcome to call for any new concerns but otherwise should follow up as needed. Coding Level of Care Code Est Pt Level 3 (10136) Diagnoses Family history of colon cancer Z80.0 Family history of breast cancer Z80.3
[2023-04-27 10:28] VITALS: BP 113/64; PULSE 72; BMI 20.1
== END 2023-04-27 10:44 | disposition home or self-care (01) ==
PROVIDERS: PCP Nurse Practitioner Family; Visit Provider Surgery
DX: Z80.0 Family history of malignant neoplasm of digestive organs (principal); Z80.3 Family history of malignant neoplasm of breast
CPT/HCPCS: 99213

== ENCOUNTER → 2023-04-27 10:23 | Outpatient (BNVA) | payer OTHER, SELFPAY | PROVIDERS: PCP Nurse Practitioner Family; Visit Provider Surgery ==

== ENCOUNTER 2023-06-21 13:10 | Outpatient (REF) | payer OTHER, SELFPAY ==
--- NOTE | ~2023-06-21 | MR_ITS ---
EXAMINATION: MR LUMBAR SPINE WITHOUT CONTRAST CLINICAL INFORMATION: Lower back pain COMPARISON: MRI of the lumbar spine 08/19/2019 TECHNIQUE: MRI of the lumbar spine was obtained using routine sequences without contrast. FINDINGS: Normal anatomic alignment. No suspicious marrow signal or focal osseous lesion. No significant marrow edema. The vertebral body heights are maintained. The intervertebral discs are of normal height and signal. The conus medullaris terminates at the level of L1-L2. The distal spinal cord is normal in appearance. The cauda equina nerve roots appear normal. No significant abnormalities of the paraspinal musculature. Limited evaluation of the intra-abdominal structures without significant abnormalities. The abdominal aorta is of normal contour and caliber. SPINAL LEVELS: L1-L2: No significant spinal canal or neuroforaminal narrowing. L2-L3: No significant spinal canal or neuroforaminal narrowing. L3-L4: No significant spinal canal or neuroforaminal narrowing. Minimal disc bulge and mild facet arthropathy. L4-L5: No significant spinal canal or neuroforaminal narrowing. Minimal disc bulge and mild facet arthropathy. L5-S1: No significant spinal canal or neuroforaminal narrowing. Mild facet arthropathy. MR/MR lumbar spine wo con IMPRESSION: Mild degenerative changes of the lower lumbar spine. No significant spinal canal stenosis, neural foraminal narrowing, or evidence of nerve impingement.
== END 2023-06-21 13:11 | disposition home or self-care (01) ==
LOC: HO.MRI 13:10
PROVIDERS: PCP Nurse Practitioner Family; Visit Provider Neurological Surgery
DX: M54.9 Dorsalgia, unspecified (principal)
CPT/HCPCS: 72148

== ENCOUNTER 2023-08-03 14:30 | Outpatient (AMB) | payer OTHER, SELFPAY ==
--- NOTE | 2023-08-03 14:37 | MHC.OFFVIS ---
Intake Vital Signs 08/03/23 14:47 Height 5 ft 4 in Weight 112 lb 4 oz BMI 19.3 BP 119/77 Blood Pressure Location Lt brachial Position Sitting Respiration 18 Pulse 68 Pulse Source Pulse Oximeter Pulse Oximetry (%) 100 Oxygen Delivery Method Room Air Intake Visit Reasons: Dorsalgia, Unspecified//Confirmed Allergies No Known Allergies [No Known Allergies*] Allergy (Verified 08/03/23 14:36) HPI HPI Comments History of Present Illness Details Jocelyn is a very pleasant 22-year-old female who presents the office today for evaluation management of her chronic lower back pain. 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 She previously underwent radiofrequency ablation 10/11/2019 with improvement in her pain for approximately 3 years. She states the pain started to return about a year ago but up until recently was not as bothersome. Pain is now causing difficulty with sleep, activities, work and school. Patient states she just returned from vacation and the plane ride was very difficult due to her pain, pain is exacerbated by sitting or standing for extended periods of time. She is currently taking Tylenol with minimal improvement. She has tried anti-inflammatory medications but they do not provide her relief. Patient has attempted physical therapy in the past which did not help, she continues with home exercise program but the pain persists. Patient denies shooting, shocking, electrical pain down either leg. Patient denies red flag symptoms including new loss of bowel, bladder or saddle anesthesia. She would like to repeat the RFA. Recent MRI reviewed, results as per below Pain today is rated as a 4/10, worse during the day and in the evenings. In terms of muscle damage condition is described as aching, stabbing, sharp and throbbing. Pain is negatively impacting patient's enjoyment life, general activity, mood, normal work, recreational activities and sleep. [facility] Medical History Dog bite Acute sinusitis Surgical History [place] teeth extracted Previous back surgery H/O elbow surgery Family History Father HTN (hypertension) Maternal Aunt Breast cancer, Onset Age: 47 Colon cancer Maternal Aunt Breast cancer Mother BRCA negative Social History Housing: House Alcohol intake: never Patient Tobacco Use Status: Never used Tobacco service: No Current occupational status: employed Sexual orientation: Straight/Heterosexual Gender identity: Female Cognitive needs: No Hearing needs: No Vision needs: Yes (contacts) Female Reproductive History Menstrual Age of Menarche: 16 Review of Systems Const All systems reviewed & are unremarkable except as noted in HPI and below Physical Exam Vital Signs: Last Vital Signs Pulse 68 08/03/23 14:47 Resp 18 08/03/23 14:47 BP 119/77 08/03/23 14:47 Pulse Ox 100 08/03/23 14:47 Oxygen Delivery Method Room Air 08/03/23 14:47 BMI result Body Mass Index 19.3 General: awake, alert, oriented. Answers questions appropriately. Fully engaged in examination. Skin: warm, dry, intact HEENT: Normocephalic. Hearing intact. Cardiac: External chest normal in appearance. Respiratory: No cough, audible wheezing or stridor. Abdomen: without gross distension. MS: No obvious swelling or deformities. Able to transition from sit to stand unassisted. Ambulates with bilaterally normal heel strike and toe off Full lumbar ROM, improvement in pain with flexion Frank negative bilaterally SLR negative bilaterally strength 5/5 BLE Neurological: Oriented to person, place, time and situation. Thought process intact. Psychiatric: Appropriate mood and affect. Good judgment and insight. Results Reviewed Results Reviewed: 06/21/2023 MR/MR lumbar spine wo con FINDINGS: Normal anatomic alignment. No suspicious marrow signal or focal osseous lesion. No significant marrow edema. The vertebral body heights are maintained. The intervertebral discs are of normal height and signal. The conus medullaris terminates at the level of L1-L2. The distal spinal cord is normal in appearance. The cauda equina nerve roots appear normal. No significant abnormalities of the paraspinal musculature. Limited evaluation of the intra-abdominal structures without significant abnormalities. The abdominal aorta is of normal contour and caliber. SPINAL LEVELS: L1-L2: No significant spinal canal or neuroforaminal narrowing. L2-L3: No significant spinal canal or neuroforaminal narrowing. L3-L4: No significant spinal canal or neuroforaminal narrowing. Minimal disc bulge and mild facet arthropathy. L4-L5: No significant spinal canal or neuroforaminal narrowing. Minimal disc bulge and mild facet arthropathy. L5-S1: No significant spinal canal or neuroforaminal narrowing. Mild facet arthropathy. IMPRESSION: Mild degenerative changes of the lower lumbar spine. No significant spinal canal stenosis, neural foraminal narrowing, or evidence of nerve impingement. Assessment & Plan Assessment & Plan (1) Lumbar spondylosis: Code(s): M47.816 - Spondylosis without myelopathy or radiculopathy, lumbar region Samira Banks is a very pleasant 22-year-old female who presented to the office today for evaluation management of her chronic lower back pain. History, physical exam and provocative testing consistent with lumbar spondylosis. Patient has exhausted conservative therapy including [id number]-[id number] medications, nonsteroidal anti-inflammatory medications, physical therapy and home exercise program. Patient had previously successful radiofrequency ablation which she would like to repeat at this time. Will schedule for fluoroscopy guided L3, L4, DR L5 RFA with anesthesia. Methocarbamol 500 mg p.o. b.i.d. as needed, patient advised on cautions for use. All questions and concerns have been answered and patient agrees with the plan. Follow up after procedure, sooner if needed. Medications: New methocarbamol No driving while taking this medication. 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
[2023-08-03 14:47] VITALS: BP 119/77; PULSE 68; RESP 18; O2SAT 100; BMI 19.3
== END 2023-08-03 15:05 | disposition home or self-care (01) ==
PROVIDERS: PCP Nurse Practitioner Family; Visit Provider Registered Nurse Emergency
DX: M47.816 Spondylosis without myelopathy or radiculopathy, lumbar region (principal)
CPT/HCPCS: 99204

== ENCOUNTER → 2023-08-03 14:30 | Outpatient (BNVA) | payer OTHER, SELFPAY | PROVIDERS: PCP Nurse Practitioner Family; Visit Provider Registered Nurse Emergency ==

== ENCOUNTER 2023-08-31 10:54 | Day surgery (SDC) | payer OTHER, SELFPAY ==
[2023-08-29 08:47] VITALS: BMI 19.2
--- NOTE | ~2023-08-31 | FL_ITS ---
EXAMINATION: FL FLUOROSCOPY WITH IMAGES CLINICAL INFORMATION: L3-L4 dorsal ramus L5 RFA. COMPARISON: MR lumbar spine 06/21/2023. TECHNIQUE: Fluoroscopy Supervised By: Dr. Tabares. Fluoroscopy Time: 1.4 minutes. Cumulative Dose: 8.09 mGy. DAP: 1.92 Gy-cm2. Images: 5. FINDINGS: Fluoroscopic guidance was provided for procedure. Multiple fluoroscopic images demonstrate 4 needles projecting lateral and posterior to the cyj-jb-fweeb lumbar spine. Please refer to operative report for more detailed evaluation. FL/FL guidance in OR IMPRESSION: Fluoroscopic guidance was provided for procedure.
[2023-08-31 11:19] VITALS: BMI 19.1
[2023-08-31 11:35] VITALS: BP 118/60; PULSE 87; RESP 16; TEMP 36.8; O2SAT 98
[2023-08-31 11:36] LABS: UPreg QC Valid YES; Urine Pregnancy NEGATIVE (NEGATIVE)
[2023-08-31] MEDS: Lactated Ringers 1,000 ML 80 ML IVCONT (11:38)
--- NOTE | 2023-08-31 11:42 | P.HPSUR_ITS ---
Pre-Procedural Eval Section A - 24 Hr Update-Section A only Date of Service: 08/31/23 The patient is an INPATIENT: No Changes since office visit: Yes Patient answered all questions The patient has been examined within 24 hours of the surgical procedure. The History & Physical has been completed within 30 days and I have reviewed it.: No Section B - Complete if H&P > 30 days Chief Complaint: Spondylosis without myelopathy or radiculopathy, Details of Present Illness: as above Relevant Family History (Specify if Yes): No Relevant Social History: None Present Medications: see Short Stay Collaborative assessment Medical History: No relevant PMH History of Previous Operations: No relevant previous surgery Allergies: Allergies Allergy/AdvReac Type Severity Reaction Status Date / Time No Known Allergies Allergy Verified 08/31/23 11:21 [No Known Allergies*] Review of Systems Sugical H&P ROS: Negative: Constitution, Cardiovascular, Respiratory, Neurolo gical, Psychiatric, Hem-Onc, Allergic/Immunologic, Gastrointestinal, Genitourinary, Musculoskeletal, Integumentary, Endocrine and Eyes/Ears/Nose/Throat Exam Surgical H&P Exam: Normal: HEENT, Normal: Heart, Normal: Lungs, Normal: Extremities, Normal: Abdomen, Normal: Skin and Normal: Neurological Plan Diagnosis/Plan: Unchanged I have reviewed the history and physical and performed a pertinent physical examination on my patient. No changes have occurred unless specified. Time Spent With Patient Time: Total time managing care of this patient today ____ minutes.
--- NOTE | 2023-08-31 11:46 | HO.ANESPROP2 ---
HPI - Anesthesia Eval Consult details Narrative: for RF mbsusanne PMFSH Active Problems Active Problems: All Active Problems (Updated 08/29/23 @ 08:40 by Yoselyn Caldera RN) Lumbar spondylosis (Acute) Back pain (Acute) Family history of colon cancer (Acute) Family history of breast cancer (Acute) Screen for sexually transmitted diseases (Acute) Genetic testing of female (Acute) Breakthrough bleeding on OCPs (Acute) Counseling for control, oral contraceptives (Acute) Cervical cancer screening (Acute) Well woman exam with routine gynecological exam (Acute) Immunity status testing (Acute) Sore throat (Acute) Screening for hypothyroidism (Acute) Screening for diabetes mellitus (Acute) Adult general medical exam (Acute) Past Medical History Medical History Lumbar spondylosis Back pain Family History Family History Father HTN (hypertension) Maternal Aunt Breast cancer, Onset Age: 47 Colon cancer Maternal Aunt Breast cancer Mother BRCA negative Family history of problems with anesthesia: No Surgical History Surgical History History of surgery Hx of wisdom tooth extraction H/O elbow surgery History of Problems with Anesthesia: Yes Social History Social History Housing: House Alcohol intake: never Patient Tobacco Use Status: Never used Tobacco Use of substances other than those prescribed or required for medical reasons: Yes Substance Use Frequency: Occasionally Are you DNR?: No Advance Directives: No Advance Directives Information Provided: Yes service: No Current occupational status: employed Sexual orientation: Straight/Heterosexual Gender identity: Female Cognitive needs: No Hearing needs: No Vision needs: Yes (contacts) Meds Allergies Allergy/AdvReac Type Severity Reaction Status Date / Time No Known Allergies Allergy Verified 08/31/23 11:21 [No Known Allergies*] Active Medications: Current Medications Lactated Ringer's (Lr) 1,000 mls @ 80 mls/hr IVCONT .[id number] ISI Last Admin: 08/31/23 11:38 Dose: 80 mls/hr Exam Height,Weight and Vital Signs: Height 5 ft 4 in Weight 50.349 kg Last Vital Signs Temp 98.2 F 08/31/23 11:35 Pulse 87 08/31/23 11:35 Resp 16 08/31/23 11:35 BP 118/60 08/31/23 11:35 Pulse Ox 98 08/31/23 11:35 O2 Del Method Room Air 08/31/23 11:35 Pertinent Lab Results Pertinent Lab Results: Laboratory Tests 08/31/23 11:24 Urine Test NEGATIVE Airway Mallampati Class: II TM Dist: >3cm Neck ROM: Full Heart: rrr Lungs: cta Assessment and Plan Assessment Anesthesia Assessment: Anesthesia Plan Discussed and Chart Reviewed Final Anesthetic Review Family History of Problems with Anesthesia: No History of Problems with Anesthesia: Yes NPO: Yes ASA Class: I Final Preanesthetic Review: No Changes in Pt Med Stat, Meds/Allgs Chart Reviewed, Consent Obtained/Reviewed and Anes Risks/Benef Reviewed Patient Risk: Low Procedure Risk: Low Anesthetic Plan Anesthetic Plan: GA and MAC: Disposition: Standard PACU
--- NOTE | 2023-08-31 13:41 | PM.OP ---
Brief Operative Note Date of Service: 08/31/23 Pre-op diagnosis: spondylosis lumbar without myelo/ radiculopathy Post-op diagnosis: same Procedure: RFA L2- L3- L4- DRL5 medial branches bilateral. Implants: none Surgeon: Nasim Tabares MD Anesthesia: MAC Was an Financial Planning Adviser used for this Procedure?: No Estimated blood loss (mL): 4 Condition: stable Disposition: PACU
[2023-08-31 13:50] VITALS: BP 100/61; PULSE 79; RESP 16; TEMP 36.4; O2SAT 98
--- NOTE | 2023-08-31 13:51 | P.OP_ITS ---
Operative Note Operative Note Date of Service: 08/31/23 Narrative: RFA L2- L3-L4-DRL5 bilateral medial branches. Informed consent was explained to the patient. All questions were explained and answered. The patient was taken inside the operating room where she was positioned prone on the operating table. ASA monitors were applied and the patient was moderately to deeply sedated. Time-out was performed delineating name and of the patient,? correct site, side, the nature of the procedure, patient's allergy, preoperative antibiotic if needed. All operating room staff was participating in OR time-out procedure. The lower back was prepped with ChloraPrep and draped with sterile towels. C-arm was brought over the operating field and sq picture of L3, L4, L5 vertebras and upper sacrum were delineated on the screen. Point of interest were delineated as connection of superior articular process of?L3, L4 and L5 vertebra bilaterally with corresponding transverse processes as well as superior articular process of S1 bilaterally connection with sacral alae 1st on the right and then on the left side.? ?The projection of the point of interest to the skin were injected with the small amount of local anesthetic lidocaine 2% 1-1.5 cc. After that 18 gauge 100 mm RFA canulas? were driven to the point of interest in oblique fashion. After needles gently contacted the bone the? motor tests were performed. The lateral images were obtained and position of the tips of the needles away from the foramina and presumable location of the somatic nerves was verified. no motor response was detected in the patients feet lower legs or thighs. After that? at the point of interests the cannulas? were injected with small amount of ropivacaine 0.5% mixed with lidocaine 1%-1cc?-2cc. and trace amount of Kenalog. 90 seconds after the injection the energy application was performed at 89 degrees Centigrade for 90 second. After first energy application the canullas were rotated 180 degrees and energy application was repeated at the same s etting.? Upon completion of the energy applications canullas were removed and sterile bandaids? were applied, The? patient was taken outside of the operating room to recovery room, she recovered uneventfully.
[2023-08-31 14:05] VITALS: BP 106/68; PULSE 68; RESP 16; TEMP 36.8; O2SAT 99
[2023-08-31] MEDS: ondansetron HCL 4 MG/2 ML VIAL IVPUSH (14:10)
[2023-08-31 14:20] VITALS: BP 106/66; PULSE 63; RESP 18; TEMP 37.1; O2SAT 98
[2023-08-31 14:35] VITALS: BP 111/76; PULSE 64; RESP 18; TEMP 37.3; O2SAT 99
== END 2023-08-31 15:19 | disposition home or self-care (01) ==
PROVIDERS: Registered Nurse Emergency; PCP Nurse Practitioner Family; Visit Provider Anesthesiology
PROC: (CPT 64635; principal; 2023-08-31 12:40)
DX: M47.816 Spondylosis without myelopathy or radiculopathy, lumbar region (principal); G89.29 Other chronic pain
CPT/HCPCS: 64635; 64636 ×2; 81025; J2250; J2405; J2704; J2795; J3010; J3301

== ENCOUNTER → 2023-08-31 10:54 | Outpatient (BNV) | payer OTHER, SELFPAY | PROVIDERS: PCP Nurse Practitioner Family; Visit Provider Anesthesiology | DX: M47.816 Spondylosis without myelopathy or radiculopathy, lumbar region (principal) | CPT/HCPCS: 64635; 64636 ==

== ENCOUNTER 2023-09-06 10:56 | Outpatient (AMB) | payer OTHER, SELFPAY ==
--- NOTE | 2023-09-06 10:55 | AM.OFFWIN_ITS ---
Intake Vital Signs 09/06/23 10:57 Height 5 ft 3 in Weight 110 lb BMI 19.5 BP 116/70 Blood Pressure Location Lt brachial Position Sitting Pulse 65 Pulse Source Pulse Oximeter Temp 97.8 F Temp Source Temporal Artery Scan Pulse Oximetry (%) 96 Oxygen Delivery Method Room Air Intake Visit Reasons: EP upper body rash 3days Intake Note: pt is here today for upper body rash started 3 days ago Patient Tobacco Use Status: Never used Tobacco Allergies No Known Allergies [No Known Allergies*] Allergy (Verified 09/06/23 10:56) Do you need a note to return to daycare/school/sports/work: No HPI HPI Comments History of Present Illness Details Patient is a 22yo F who presents with rash she had back ablation procedure at hospital locally; no complications. Feeling better, just slightly sore This is her second time getting this Ongoing rash since Monday No itch or pain,0/10 Denies new medications, lotions, foods, detergents, perfumes etc She has tried oral benadryl, zyrtec and topical benadryl without relief Unsure where it is from Located on chest wall and under breast and noticed last night some to R side of back. [facility] Medical History Lumbar spondylosis Back pain Surgical History History of surgery Hx of wisdom tooth extraction H/O elbow surgery Family History Father HTN (hypertension) Maternal Aunt Breast cancer, Onset Age: 47 Colon cancer Maternal Aunt Breast cancer Mother BRCA negative Social History Housing: House Alcohol intake: never Patient Tobacco Use Status: Never used Tobacco service: No Current occupational status: employed Sexual orientation: Straight/Heterosexual Gender identity: Female Cognitive needs: No Hearing needs: No Vision needs: Yes (contacts) Female Reproductive History Menstrual Age of Menarche: 16 Review of Systems Const Denies chills and Denies fever(s) ENT Denies sore throat, Denies throat swelling and Denies tongue swelling Card Denies chest pain and Denies dyspnea Resp Denies dyspnea Skin/Breast Denies pruritus, Reports erythema and Reports rash Aller/Immun Denies throat swelling and Denies tongue swelling Physical Exam Vital Signs: Last Vital Signs Temp 97.8 F 09/06/23 10:57 Pulse 65 09/06/23 10:57 BP 116/70 09/06/23 10:57 Pulse Ox 96 09/06/23 10:57 Oxygen Delivery Method Room Air 09/06/23 10:57 BMI result Body Mass Index 19.5 General: Non-toxic, NAD. Speaking full sentences. Skin: Warm dry throughout. + small erythematous macules/pustules center chest wall, minimal amount to inferior breast bilaterally. Minimal to R mid thoracic region. No rash elsewhere on body Eye: EOMI HENT: Airway patent. Uvula midline. No pharyngeal erythema or edema. 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 Respiratory: CTA bilaterally. No wheezes, rales or rhonchi Cardiac: RRR. No murmur MSK: Full ROM extremities. Neurology: A/O. No aphasia or facial droop. Gait without abnormality Psych: Good mood and affect Assessment & Plan Assessment & Plan (1) Rash: Code(s): R21 - Rash and other nonspecific skin eruption Plan: Patient seen and evaluated. Rash appears consistent with a pricky heat rash type of lesions. No folliculitis, vesicles or plaques on exam. Non-toxic appearing. No respiratory involvement Discussed need to call MD who completed back ablation on and ensure Prednisone okay to take Prednisone with food. Avoid alcohol and nsaids F/U with PCP Patient gave verbal understanding and had no additional questions or concerns at time of discharge All questions answered Medications: New prednisone 40 mg (2 x 20 mg) PO DAILY 8 tabs 0RF Coding Level of Care Code Est Pt Level 3 (13235) Diagnoses Rash R21
[2023-09-06 10:57] VITALS: BP 116/70; PULSE 65; TEMP 36.6; O2SAT 96; BMI 19.5
== END 2023-09-06 12:10 | disposition home or self-care (01) ==
PROVIDERS: PCP Nurse Practitioner Family; Visit Provider Physician Assistant
DX: R21 Rash and other nonspecific skin eruption (principal)
CPT/HCPCS: 99213

== ENCOUNTER 2023-10-02 10:41 | Outpatient (REF) | payer OTHER, SELFPAY ==
[2023-10-05 00:28] LABS: TS Negative Control Passed; TS Panel A 0; TS Panel B 0; TS Positive Control Passed; TSpotTB Negative (Negative)
== END 2023-10-02 10:42 | disposition home or self-care (01) ==
LOC: HO.LAB 10:41
PROVIDERS: PCP Internal Medicine; Visit Provider Internal Medicine
DX: Z11.1 Encounter for screening for respiratory tuberculosis (principal)
CPT/HCPCS: 36415; 86481

== ENCOUNTER 2023-10-11 09:21 | Outpatient (AMB) | payer OTHER, SELFPAY ==
[2023-10-11 09:28] VITALS: BP 111/71; PULSE 80; RESP 16; O2SAT 98; BMI 18.7
--- NOTE | 2023-10-11 09:28 | MHC.OFFVIS ---
Intake Vital Signs 10/11/23 09:28 Height 5 ft 3 in Weight 105 lb 6 oz BMI 18.7 BP 111/71 Blood Pressure Location Lt brachial Position Sitting Respiration 16 Pulse 80 Pulse Source Pulse Oximeter Pulse Oximetry (%) 98 Oxygen Delivery Method Room Air Intake Visit Reasons: S/p L3-L4-DRL5 RFA 08/31/23/confirm Allergies No Known Allergies [No Known Allergies*] Allergy (Verified 10/11/23 09:28) HPI HPI Comments History of Present Illness Details Jocelyn presents back to the office for follow-up status post L3-L4 DR L5 radiofrequency ablation performed 08/31/2023 She reports 100% pain relief today. Some initial soreness after the procedure but that has since resolved. Patient also endorses improvement in functional mobility, she states previously she would be in discomfort with long car rides which has also resolved. Has been exercising, using low-impact stationary bike. Plan to start swimming once the weather gets nicer. 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 Previously was concerned that her back pain would impact her ability to perform in this position. Prior: Jocelyn is a very pleasant 22-year-old female who presents the office today for evaluation management of her chronic lower back pain. 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 She previously underwent radiofrequency ablation 10/11/2019 with improvement in her pain for approximately 3 years. She states the pain started to return about a year ago but up until recently was not as bothersome. Pain is now causing difficulty with sleep, activities, work and school. Patient states she just returned from vacation and the plane ride was very difficult due to her pain, pain is exacerbated by sitting or standing for extended periods of time. She is currently taking Tylenol with minimal improvement. She has tried anti-inflammatory medications but they do not provide her relief. Patient has attempted physical therapy in the past which did not help, she continues with home exercise program but the pain persists. Patient denies shooting, shocking, electrical pain down either leg. Patient denies red flag symptoms including new loss of bowel, bladder or saddle anesthesia. She would like to repeat the RFA. Recent MRI reviewed, results as per below Pain today is rated as a 4/10, worse during the day and in the evenings. In terms of muscle damage condition is described as aching, stabbing, sharp and throbbing. Pain is negatively impacting patient's enjoyment life, general activity, mood, normal work, recreational activities and sleep. [facility] Medical History Lumbar spondylosis Back pain Surgical History History of surgery Hx of wisdom tooth extraction H/O elbow surgery Family History Father HTN (hypertension) Maternal Aunt Breast cancer, Onset Age: 47 Colon cancer Maternal Aunt Breast cancer Mother BRCA negative Social History Housing: House Alcohol intake: never Patient Tobacco Use Status: Never used Tobacco service: No Current occupational status: employed Sexual orientation: Straight/Heterosexual Gender identity: Female Cognitive needs: No Hearing needs: No Vision needs: Yes (contacts) Female Reproductive History Menstrual Age of Menarche: 16 Review of Systems Const All systems reviewed & are unremarkable except as noted in HPI and below Physical Exam Vital Signs: Last Vital Signs Pulse 80 10/11/23 09:28 Resp 16 10/11/23 09:28 BP 111/71 10/11/23 09:28 Pulse Ox 98 10/11/23 09:28 Oxygen Delivery Method Room Air 10/11/23 09:28 BMI result Body Mass Index 18.7 General: awake, alert, oriented. Answers questions appropriately. Fully engaged in examination. Skin: warm, dry, intact HEENT: Normocephalic. Hearing intact. Cardiac: External chest normal in appearance. Respiratory: No cough, audible wheezing or stridor. Abdomen: without gross distension. MS: No obvious swelling or deformities. Able to transition from sit to stand unassisted. Ambulates with bilaterally normal heel strike and toe off Neurological: Oriented to person, place, time and situation. Thought process intact. Psychiatric: Appropriate mood and affect. Good judgment and insight. Results Reviewed Results Reviewed: 06/21/2023 MR/MR lumbar spine wo con FINDINGS: Normal anatomic alignment. No suspicious marrow signal or focal osseous lesion. No significant marrow edema. The vertebral body heights are maintained. The intervertebral discs are of normal height and signal. The conus medullaris terminates at the level of L1-L2. The distal spinal cord is normal in appearance. The cauda equina nerve roots appear normal. No significant abnormalities of the paraspinal musculature. Limited evaluation of the intra-abdominal structures without significant abnormalities. The abdominal aorta is of normal contour and caliber. SPINAL LEVELS: L1-L2: No significant spinal canal or neuroforaminal narrowing. L2-L3: No significant spinal canal or neuroforaminal narrowing. L3-L4: No significant spinal canal or neuroforaminal narrowing. Minimal disc bulge and mild facet arthropathy. L4-L5: No significant spinal canal or neuroforaminal narrowing. Minimal disc bulge and mild facet arthropathy. L5-S1: No significant spinal canal or neuroforaminal narrowing. Mild facet arthropathy. IMPRESSION: Mild degenerative changes of the lower lumbar spine. No significant spinal canal stenosis, neural foraminal narrowing, or evidence of nerve impingement. Assessment & Plan Assessment & Plan (1) Lumbar spondylosis: Code(s): M47.816 - Spondylosis without myelopathy or radiculopathy, lumbar region Plan Jocelyn presents back to the office today for follow-up status post bilateral L3-L4 DR L5 radiofrequency ablation performed 08/31/2023 She reports 100% pain relief with improvement in functional mobility. Continue with low-impact exercise Continue with muscle relaxers as needed, she declines refill today All questions and concerns have been answered and patient agrees with the plan. Follow up in the office when pain returns, sooner if needed Coding Level of Care Code Est Pt Level 3 (40233) Diagnoses Lumbar spondylosis M47.816
== END 2023-10-11 10:22 | disposition home or self-care (01) ==
PROVIDERS: PCP Nurse Practitioner Family; Visit Provider Registered Nurse Emergency
DX: M47.816 Spondylosis without myelopathy or radiculopathy, lumbar region (principal)
CPT/HCPCS: 99213

== ENCOUNTER → 2023-10-11 09:21 | Outpatient (BNVA) | payer OTHER, SELFPAY | PROVIDERS: PCP Nurse Practitioner Family; Visit Provider Registered Nurse Emergency ==

== ENCOUNTER 2023-11-29 12:22 | Outpatient (AMB) | payer OTHER, SELFPAY ==
[2023-11-29 13:14] VITALS: BP 112/70; PULSE 85; O2SAT 98
--- NOTE | 2023-11-29 13:14 | AM.OFFWIN_ITS ---
Intake Vital Signs 3 11/29/23 13:14 Height 5 ft 3 in BP 112/70 Blood Pressure Location Rt brachial Position Sitting Pulse 85 Pulse Source Pulse Oximeter Pulse Oximetry (%) 98 Oxygen Delivery Method Room Air Intake Visit Reasons: EP cyst lft cheek hurting eye/ear Intake Note: pt is here for cyst on left side on cheek and looking for topical cream Patient Tobacco Use Status: Never used Tobacco Allergies No Known Allergies [No Known Allergies*] Allergy (Verified 11/29/23 13:15) HPI HPI Comments 2 History of Present Illness0 Details 23 y/o female patient who presents to [facility] in clinic with c/o medium size cystic pimple, on left cheek. Reports swelling, pain radiating to the neck and left ear. She has been taking OTC pain medicines with minimal relief. She has also been applying warm/cold compress. [facility] Medical History Lumbar spondylosis Back pain Surgical History History of surgery Hx of wisdom tooth extraction H/O elbow surgery Family History Father HTN (hypertension) Maternal Aunt Breast cancer, Onset Age: 47 Colon cancer Maternal Aunt Breast cancer Mother BRCA negative Social History Housing: House Alcohol intake: never Patient Tobacco Use Status: Never used Tobacco service: No Current occupational status: employed Sexual orientation: Straight/Heterosexual Gender identity: Female Cognitive needs: No Hearing needs: No Vision needs: Yes (contacts) Female Reproductive History Menstrual Age of Menarche: 16 Review of Systems Const All systems reviewed & are unremarkable except as noted in HPI and below Physical Exam Vital Signs: Last Vital Signs Pulse 85 11/29/23 13:14 BP 112/70 11/29/23 13:14 Pulse Ox 98 11/29/23 13:14 Oxygen Delivery Method Room Air 11/29/23 13:14 Const General: comfortable and no acute distress Nutritional Appearance: thin Orientation/consciousness: patient oriented x3 HEENT Head: Yes normocephalic Ears: external ears normal and TM's normal bilaterally General nose exam: Normal external nose present Face and sinus: Yes sinuses nontender Face images: 2 1. Small size cyst, erythematous edges, swelling and tender to touch Mouth: moist mucous membranes Neuro General: patient oriented x3, gait normal and moves all extremities Psych Speech and movement: Normal speech and movement present Assessment & Plan Assessment & Plan (1) Epidermoid cyst of skin of cheek: Code(s): L72.0 - Epidermal cyst Plan: - Continue using warm compress - Ibuprofen for pain relief - RTC if symptoms worse. Medications: New 2 ibuprofen 800 mg PO Q8H 30 tabs 0RF L72.0 - Epidermal cyst doxycycline hyclate 100 mg PO BID 14 caps 0RF 7 days L72.0 - Epidermal cyst Coding Level of Care Code Est Pt Level 3 (34938) Diagnoses Epidermoid cyst of skin of cheek L72.0 Time Spent (min) 15
== END 2023-11-29 14:15 | disposition home or self-care (01) ==
PROVIDERS: PCP Nurse Practitioner Family; Visit Provider Nurse Practitioner Family
DX: L72.0 Epidermal cyst (principal)
CPT/HCPCS: 99213

== ENCOUNTER 2024-03-18 13:23 | Outpatient (AMB) | payer OTHER, SELFPAY ==
--- NOTE | 2024-03-18 13:30 | A.OFFPC_ITS ---
Vital Signs 03/18/24 13:31 Height 5 ft 3 in Weight 108 lb BMI 19.1 BP 100/60 Blood Pressure Location Lt brachial Position Sitting Pulse 80 Pulse Source Pulse Oximeter Pulse Oximetry (%) 98 Oxygen Delivery Method Room Air Intake Visit Reasons: Trans.LisaZack.-PhysicalExam Intake Note: Patient is here today for a physical. 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 Patient has noticed her rash at the corner of the mouth a week ago. She was seen at the urgent care center and treated with antifungal. No improvement in the symptoms. She started using [id number] corticosteroid cream and the rash did not c ompletely subside but diminished in size. She has a few papules over her cheeks. 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 1. Little interest or pleasure in doing things: not at all 2. Feeling down, depressed, or hopeless: not at all 3. Trouble falling or staying asleep, or sleeping too much: not at all 4. Feeling tired or having little energy: not at all 5. Poor appetite or overeating: not at all 6. Feeling bad about yourself - or that you are a failure or have let yourself or your family down: not at all 7. Trouble concentrating on things, such as reading the newspaper or watching television: not at all 8. Moving or speaking so slowly that other people could have noticed. Or the opposite - being so fidgety or restless that you have been moving around a lot more than usual: not at all 9. Thoughts that you would be better off or of hurting yourself in some way: not at all Total score: 0 Depression Screening Interpretation: Negative Depression Screening Done: Yes 65563 - PHQ-9 Billing: Yes Source: Developed by Drs. Abbe Estrada, Maryse Li, Keny Christopher and colleagues, with an educational randy from [employer]. Thrive Questionnaire Date Thrive assessed: 03/18/24 I am a: Patient What is your living situation today?: I have a steady place to live Within the past 12 months, did the food you bought not last and you didn't have the money to get more?: Never true Within the past 12 months, did you worry whether your food would run out before you got money to buy more?: Never true Do you have trouble paying for medicines?: No Do you have trouble getting transportation to medical appointments?: No Do you have trouble paying your heating and electricity bill?: No Do you have trouble taking care of your child, family member or friend?: No Do you have trouble with day-to-day activities such as bathing, preparing meals, shopping, managing finances, etc.?: No Are you currently unemployed and looking for a job?: No Are you interested in more education?: No Currently or been in a relationship where the following occur: No concerns reported THRIVE Score: 0 AUDIT C Alcohol Use Questionnaire (AUDIT-C) 1. How often do you have a drink containing alcohol?: Monthly or less 2. How many drinks containing alcohol do you have on a typical day when you are drinking?: 1 or 2 3. How often do you have six or more drinks on one occasion?: Never Total Score: 1 Score Reviewed/Action Taken: No MADALYN-7 AMB Questionnaire MADALYN-7 Date MADALYN - 7 assessed: 03/18/24 Feeling nervous, anxious, or on edge: 0 = Not at all Not being able to stop or control worryin = Not at all Worrying too much about different things: 0 = Not at all Trouble relaxin = Not at all Being so restless that it is hard to sit still: 0 = Not at all Becoming easily annoyed or irritable: 0 = Not at all Feeling afraid as if something awful might happen: 0 = Not at all Total MADALYN-7 score (0-4 normal; 5-9 mild; 10-14 moderate; 15-21 severe): 0 Source: Developed by Drs. Abbe Estrada, Maryse Li, Keny Christopher and colleagues, with an educational randy from [employer]. MADALYN-7 Assessment Billing MADALYN-7 Assessment Tool: MADALYN-7 Assessment 33658 Physical exam (Primary Care) Vital Signs: Last Vital Signs Pulse 80 03/18/24 13:31 BP 100/60 03/18/24 13:31 Pulse Ox 98 03/18/24 13:31 Oxygen Delivery Method Room Air 03/18/24 13:31 BMI result Body Mass Index 19.1 Tobacco/Smoking Status: Tobacco use Status Tobacco use date assessed 03/18/24 03/18/24 13:43 Patient Tobacco Use Status Never used Tobacco 03/18/24 13:32 e-Cigarette/Vaping Use Never Used 03/18/24 13:43 PHQ-9: PHQ-9 Score PHQ-9: Total score 0 03/18/24 13:43 Depression Screening Interpretation: Negative Thrive Assessment: Date of Thrive Assessment Date Thrive assessed 03/18/24 03/18/24 13:43 Currently or been in a relationship where the following occur: No concerns reported Skin Other: Face: Erythematous rash at the corner of the left side of the mouth. Rash is fading. Few erythematous papules on the cheek Assessment and Plan Assessment & Plan (1) Angular cheilitis: Code(s): K13.0 - Diseases of lips Plan: Most likely eczematous in nature. Group four medium potency corticosteroid cream suggested. To be applied twice a day for 2 weeks. Patient was also requesting blood work for her upcoming physical. Blood work has been ordered. Orders: Orders Lipid Panel Today R21 - Rash and other nonspecific skin eruption, Z00.00 - Encounter for general adult medical examination without abnormal findings Thyroid Stimulating Hormone Today R21 - Rash and other nonspecific skin eruption, Z00.00 - Encounter for general adult medical examination without abnormal findings Complete Blood Count no Diff Today R21 - Rash and other nonspecific skin eruption, Z00.00 - Encounter for general adult medical examination without abnormal findings Basic Metabolic Panel Today R21 - Rash and other nonspecific skin eruption, Z00.00 - Encounter for general adult medical examination without abnormal findings Liver Panel Today R21 - Rash and other nonspecific skin eruption, Z00.00 - Encounter for general adult medical examination without abnormal findings UA and rflx microscopic Today R21 - Rash and other nonspecific skin eruption, Z00.00 - Encounter for general adult medical examination without abnormal findings Medications: New hydrocortisone valerate 0.2% 1 appl topical BID PRN 15 grams 1RF skin irritation Coding Level of Care Code Est Pt Level 3 (67933) Complex EM visit Add On G2211 Diagnoses Angular cheilitis K13.0 Additional Codes MADALYN-7 Assessment Billing - MADALYN-7 Assessment Tool: MADALYN-7 Assessment [id number] ([id number])
[2024-03-18 13:31] VITALS: BP 100/60; PULSE 80; O2SAT 98; BMI 19.1
== END 2024-03-18 14:30 | disposition home or self-care (01) ==
PROVIDERS: PCP Nurse Practitioner Family; Visit Provider Internal Medicine
DX: R21 Rash and other nonspecific skin eruption (principal)
CPT/HCPCS: 99213

== ENCOUNTER 2024-03-19 11:17 | Outpatient (REF) | payer OTHER, SELFPAY ==
[2024-03-19 12:09] LABS: Appearance Urine Clear; Color Urine Yellow; Glucose Urine UA Negative (Negative); Leukocyte Esterase Urine Small (1+) (Negative); Nitrite Urine Negative (Negative); PH 6.5 (5.0-9.0); Specific Gravity - Urine 1.025 (1.005-1.025); UMIC TRIGGER UA YES; Urine Blood Negative (Negative); Urine Ketones Negative (Negative); Urine Protein Negative (Neg-Trace)
[2024-03-19 12:11] LABS: Hematocrit 38.9 % (37.0-47.0); Hemoglobin 13.3 g/dl (12.0-16.0); Mean Corpuscular HGB Conc 34.2 g/dl (31.0-35.0); Mean Corpuscular Hemoglobin 31.3 pg (27.0-33.0); Mean Corpuscular Volume 91.5 fL (80.0-98.0); Platelet Count 288 X10*3/uL (160-400); Red Blood Count 4.25 X10*6/uL (4.20-5.50); Red Cell Distribution Width 11.9 % (11.0-16.0); White Blood Count 7.7 X10*3/uL (4.8-10.8)
[2024-03-19 12:15] LABS: Bacteria Urine 2+ (None Seen); Hyaline Casts Urine 0-2 /LPF (0-2); RBC Urine 0-2 /HPF (0-2)
[2024-03-19 12:44] LABS: Alanine Aminotransferase 9 U/L (0-31); Albumin Level 4.4 g/dL (3.5-5.0); Alkaline Phosphatase 43 U/L (39-117); Anion Gap 12 (12-20); Aspartate Amino Transferase 16 U/L (5-31); Bilirubin Direct 0.2 mg/dL (0.0-0.5); Bilirubin Total 0.5 mg/dL (0.0-1.0); Blood Urea Nitrogen 15 mg/dL (9-16); Calcium 9.7 mg/dL (8.4-10.2); Carbon Dioxide 25 mmol/L (22-29); Chloride 107 mmol/L (96-108); Cholesterol 216 mg/dL (<200); Estimated Glomerular Filt Rate > 60; Glucose Random 85 mg/dL (60-115); HDL Cholesterol 90 mg/dL (>40); LDL Cholesterol Calculated 107 mg/dL (<100); Potassium 4.3 mmol/L (3.3-5.1); Sodium 140 mmol/L (135-145); Total Protein 7.5 g/dL (6.5-8.0); Triglycerides 98 mg/dL (<150)
[2024-03-19 13:01] LABS: Thyroid Stimulating Hormone 1.03 uIU/mL (0.32-4.0)
== END 2024-03-19 11:18 | disposition home or self-care (01) ==
LOC: HO.LAB 11:17
PROVIDERS: PCP Internal Medicine; Visit Provider Internal Medicine
DX: Z00.00 Encounter for general adult medical examination without abnormal findings (principal); Z13.6 Encounter for screening for cardiovascular disorders; R21 Rash and other nonspecific skin eruption
CPT/HCPCS: 36415; 80048; 80061; 80076; 81001; 84443; 85027

== ENCOUNTER 2024-03-29 10:41 | Outpatient (REF) | payer OTHER, SELFPAY ==
[2024-03-30 06:16] LABS: CT PCR NOT DETECTED (Not Detect.); NG PCR NOT DETECTED (Not Detect.)
[2024-03-30 11:14] LABS: Bacterial Vaginosis PCR NEGATIVE (Negative); Candida Group PCR NOT DETECTED (Not Detect); Candida glab krusei PCR NOT DETECTED (Not Detect); Trichomonas vaginalis PCR NOT DETECTED (Not Detect)
== END 2024-03-29 10:42 | disposition home or self-care (01) ==
LOC: HO.LAB 10:41
PROVIDERS: PCP Nurse Practitioner Family; Visit Provider Advanced Practice Midwife
DX: Z01.419 Encounter for gynecological examination (general) (routine) without abnormal findings (principal); Z20.2 Contact with and (suspected) exposure to infections with a predominantly sexual mode of transmission; N89.8 Other specified noninflammatory disorders of vagina; R10.2 Pelvic and perineal pain
CPT/HCPCS: 0352U; 36415; 87086; 87491; 87591; 87625; 88175

== ENCOUNTER 2024-03-29 10:41 | Outpatient (AMB) | payer OTHER, SELFPAY ==
[2024-03-29 11:24] VITALS: BP 98/60; BMI 19.1
--- NOTE | 2024-03-29 11:24 | A.OFFVIS_ITS ---
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 She loves it definitely a fast pace she is going to be starting nurse practitioner school in July with 1 class a semester. She overall likes being on the control pills that she is on but she is very aware that she just feels very different the day she is on her period, jokingly saying she feels bipolar but she is not really. She is taking the pills two active packs together and then having withdrawal week and then resuming 2 months of active pills, status post previous trials of three-month sequential pills to avoid menses for this reason but the breakthrough bleeding was not worth it on that regimen she does overall like how her periods are now we did have a full discussion about the possibility of considering a Kyleena IUD but she thinks that she would not be able to tolerate the pain of insertion and the challenge of it. She does get nervous. Overall her health is good she recently got a sunburn despite putting on sunscreen. She is open to and interested in getting screening for STIs just to be sure she likes being sure she is okay. 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 Sexual orientation: Straight/Heterosexual Gender identity: Female Cognitive needs: No Hearing needs: No Vision needs: Yes (contacts) Female Reproductive History Menstrual Age of Menarche: 16 Duration of menses: 3-5 days control method: pills Total pregnancies: 0 Date of last pap smear: 02/22/21 (negative) History of abnormal pap smear: No Physical Exam Vital Signs: Last Vital Signs BP 98/60 03/29/24 11:24 BMI result Body Mass Index 19.1 Const General: healthy appearing, comfortable, no acute distress, well developed and alert Nutritional Appearance: average body habitus Orientation/consciousness: patient oriented x3 Limitations: no limitations HEENT Head: Yes normocephalic Neck Neck: Yes normal visual inspection Chest Chest palpation & inspection: normal inspection of the chest Breast/axilla inspection: normal inspection of the breasts and normal inspection of the axillae Breast/axilla palpation: normal palpation of the breasts and normal palpation of the axillae Resp Effort & Inspection: normal respiratory effort GI Inspection: Yes normal to inspection, No Abdominal wall edema and No distended Palpation (GI): Soft to palpation and nontender Other: Patient was tense with exam today external exam completely within normal limits vagina pink and moist nulliparous pink smooth healthy looking cervix. Pap smear done along with testing for STIs for screening done cervix appeared completely healthy patient was tense in with attempt for bimanual and finding it painful today so it was deferred. Discussion about potential consideration for an IUD considered how she feels with pelvic exams and she would need to tolerate and be more comfortable with the exam and insertion as well. General: Yes bladder normal to palpation External Female Exam: normal external appearance and normal appearance of the urethra Speculum Exam - Vagina: normal appearance of the vagina and normal vaginal discharge Speculum Exam - Cervix: normal appearance of the cervix Bimanual exam- vagina & uterus: bladder normal to palpation Bimanual Exam- Adnexa, other: normal Neuro General: patient oriented x3 Assessment & Plan Assessment & Plan (1) Screen for sexually transmitted diseases: Code(s): Z11.3 - Encounter for screening for infections with a predominantly sexual mode of transmission Category: Medical (2) Counseling for control, oral contraceptives: Code(s): Z30.09 - Encounter for other general counseling and advice on contraception Category: Medical (3) Cervical cancer screening: Comment: negative pap 2020, at age 20, next Pap 2023. Code(s): Z12.4 - Encounter for screening for malignant neoplasm of cervix Category: Medical (4) Well woman exam with routine gynecological exam: Code(s): Z01.419 - Encounter for gynecological examination (general) (routine) without abnormal findings Category: Medical Plan See HPI. Full discussion about whether it was worth it to change her pills or stay on what she is on versus considering a Kyleena IUD to see if being on a steady state of hormones would make a difference for her or trying progestin only pills as well but overall despite the emotional changes she feels she goes through for 2 days before her periods and 2 days of the start of the. She overall likes how her periods are so she elected to stay on the formulation she is on for now and to defer any potential changes. Offered testing for blood work for STIs that she can do at her discretion and since she will be meeting her new nurse practitioner in if few weeks she may want to hold often get all testing done together at the same time as the same blood draw. She is aware of health screening her 2 aunts had breast cancer her mom is BRCA negative. Pap smear was done today along with testing for gonorrhea chlamydia trichomoniasis Gardnerella and [place]. [facility] said [facility] 1 pack at a time but the prescription is actually ordered for 3 packs at a time so I asked her to check with them they perhaps were having a shortage at the time. RTC 1 year or p.r.n. Orders: Orders Urine Culture Today R10.2 - Pelvic and perineal pain Bacterial Vaginosis Panel Today N89.8 - Other specified noninflammatory disorders of vagina PAP rfx HPV E6/E7 and 16 18/45 Today Z01.419 - Encounter for gynecological examination (general) (routine) without abnormal findings Hepatitis C Antibody Today Z11.3 - Encounter for screening for infections with a predominantly sexual mode of transmission HIV Ab/Ag Today Z11.3 - Encounter for screening for infections with a predominantly sexual mode of transmission CT NG by PCR Today N89.8 - Other specified noninflammatory disorders of vagina, Z20.2 - Contact with and (suspected) exposure to infections with a predominantly sexual mode of transmission Hepatitis B Surface Antigen Today Z11.3 - Encounter for screening for infections with a predominantly sexual mode of transmission Syphilis Screen Today Z11.3 - Encounter for screening for infections with a predominantly sexual mode of transmission Medications: Refilled drospirenone-ethinyl estradiol 3-0.02 mg (Skylar (28)) Patient and I spoke at the last visit about alternating 2 months of continuous pills, then 1 month with a withdrawal bleed scheduled with placebo pills. 1 tab PO DAILY 84 tabs 4RF Coding Level of Care Code Est Pt Prev Care 18-39y(47881) Diagnoses Screen for sexually transmitted diseases Z11.3 Counseling for control, oral contraceptives Z30.09 Cervical cancer screening Z12.4 Well woman exam with routine gynecological exam Z01.419
== END 2024-03-29 12:45 | disposition home or self-care (01) ==
PROVIDERS: PCP Nurse Practitioner Family; Visit Provider Advanced Practice Midwife
DX: Z01.419 Encounter for gynecological examination (general) (routine) without abnormal findings (principal)
CPT/HCPCS: 99395

== ENCOUNTER 2024-04-24 09:35 | Outpatient (REF) | payer OTHER, SELFPAY ==
[2024-04-24 10:50] LABS: HBsAGNum1 0.29 S/CO (0.00-0.99); HIV AB/AG Nonreactive (Nonreactive); HIV Num 1 0.05 S/CO (0.00-0.99); Hepatitis B Surface Antigen Negative (Negative); Syphilis Screen Nonreactive (Nonreactive); ~HepC Num1 0.06 S/CO (0.00-0.79); ~Hepatitis C Antibody Nonreactive (Nonreactive)
== END 2024-04-24 09:36 | disposition home or self-care (01) ==
LOC: HO.LAB 09:35
PROVIDERS: PCP Nurse Practitioner Family; Visit Provider Advanced Practice Midwife
DX: Z11.3 Encounter for screening for infections with a predominantly sexual mode of transmission (principal)
CPT/HCPCS: 36415; 86780; 86803; 87340; 87389

== ENCOUNTER → 2024-06-05 12:02 | Outpatient (BNVA) | payer OTHER, SELFPAY | PROVIDERS: PCP Nurse Practitioner Family; Visit Provider Nurse Practitioner Family | DX: Z76.89 Persons encountering health services in other specified circumstances (principal); F41.1 Generalized anxiety disorder; F42.2 Mixed obsessional thoughts and acts; Z13.39 Encounter for screening examination for other mental health and behavioral disorders | CPT/HCPCS: 96127 ==

== ENCOUNTER 2024-07-08 08:41 | Outpatient (AMB) | payer OTHER, SELFPAY ==
--- NOTE | 2024-07-08 09:15 | A.OFFPC_ITS ---
Intake Visit Reasons: 6 weeks fu med start telehealth Allergies No Known Allergies [No Known Allergies*] Allergy (Verified 07/08/24 09:21) Medication List - Last Reconciled 07/08/24 by JEAN CLAUDE CarlosP- baclofen 10 mg PO Q12H PRN 30 days drospirenone-ethinyl estradiol 3-0.02 mg (Skylar (28)) 1 tab PO DAILY paroxetine HCl 10 mg PO DAILY Tobacco use date assessed: 06/05/24 Dental Screening Dental Screen Date: 06/05/24 HPI HPI Comments 2 History of Present Illness0 Details 23 y/o F with lumbar spondylosis, strong family history of breast cancer s/p elbow surgery, status post L3-L4 DR L5 radiofrequency ablation performed 08/31/2023 Family hx: Dad HTN, Maternal aunt brest and colon ca age 47, Maternal aunt breast ca, Mother BRCA negative 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 [facility] [employer] Pain Mgmt Genetics/Breast Surgery Labs 03/19/2024 WNL genetic testing performed on 03/28/2023. Genetic testing revealed no clinically significant mutations identified. Her breast cancer risk score was calculated at 11.6 %, below the 20% threshold placing her at high risk for breast cancer. No variance of uncertain significance (VUS) were identified. Based on her clinical history, she was felt to be at elevated risk for colon cancer due to her maternal aunt diagnosis of metastatic colon cancer at the age of 47. Early colonoscopy was recommended at least by the age of 45. A copy of the genetic testing report was provided to the patient for her records The patient is a 23-year-old female presenting with a follow-up concern regarding her generalized anxiety disorder, for which she has been prescribed paroxetine. The patient started with a 5 mg dose and transitioned to 10 mg, currently reporting a slight improvement in her anxiety symptoms, though noting a need for more time to observe full effects. She reports initially experiencing headaches and a floaty sensation upon taking the medication, which resolved after switching the intake to nighttime. Was able to connect with [facility]. The patient also noted an elevated heart rate previously, suspected to be related to anxiety, but which has since stabilized. No significant adverse side effects are currently reported. Review of Systems - Neurological: Reports initial headache s and a floaty feeling in the head, now resolved. - Cardiovascular: Denies current episode s of elevated heart rate. Plan - Continue paroxetine at the current dos age of 10 mg once daily. Refill sent. - Schedule a follow-up appointment in si x to eight weeks to assess progress and determine the necessity of further adjustment in dosage. Tehealth ok - Monitor for any recurrence of side eff ects and adjust timing of medication as needed. Patient was informed and verbally consented to the use of an ambient scribe for clinic note documentation during this visit. Discussion Notes During the visit, we discussed the management of the patient's generalized anxiety disorder and the effectiveness of paroxetine thus far. The patient reported initial side effects but noted improvement upon adjusting the timing of the medication to the evening. I advised continuation of the current 10 mg dose of paroxetine with an additional refill provided, allowing for ongoing management of symptoms. We agreed on a follow-up timeline of six to eight weeks to evaluate the medication's efficacy and discuss any further adjustments. The patient consented to these recommendations and opted for a phone follow-up for convenience. Patient Instructions Tachycardia resolved. - Continue taking paroxetine 10 mg every evening. - Keep a log of any symptoms or side eff ects experienced. - Expect a follow-up phone call in six t o eight weeks to discuss progress. - Contact our office sooner if any acute concerns arise or if side effects become troubling. - Utilize the employee assistance Inkvite as needed for additional support with work-related stressors. Total time spent caring for the patient today was 18 minutes. This includes time spent before the visit reviewing the chart, time spent during the visit, and time spent after the visit on documentation [facility] Medical History (Updated 06/06/24 @ 10:24 [facility] Arthritis Lumbar spondylosis Back pain Surgical History History of surgery Hx of wisdom tooth extraction H/O elbow surgery Family History (Updated 06/05/24 @ 12:11 by Ayah Camp MA) Father HTN (hypertension) Maternal Aunt Breast cancer, Onset Age: 47 Colon cancer Maternal Aunt Breast cancer Mother BRCA negative Social History (Updated 06/05/24 @ 12:10 by Ayah Camp MA) Household Members: Family Both parents involved: Yes Caregiver staying overnight: No Housing: House Are you a primary hospice care consultant to a significant other at home: No Do you presently have visiting nurse or other home services: No 75 years or older and lives alone: No Alcohol intake: never Patient Tobacco Use Status: Never used Tobacco e-Cigarette/Vaping Use: Never Used Second Hand Smoke Exposure: No service: No Current occupational status: employed 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 Sexual orientation: Straight/Heterosexual Gender identity: Female Cognitive needs: No Hearing needs: No Vision needs: Yes (contacts) Female Reproductive History Menstrual Age of Menarche: 16 Questionnaire Thrive Questionnaire Date Thrive assessed: 06/05/24 I am a: Patient What is your living situation today?: I have a steady place to live Within the past 12 months, did the food you bought not last and you didn't have the money to get more?: Never true Within the past 12 months, did you worry whether your food would run out before you got money to buy more?: Never true Do you have trouble paying for medicines?: No Do you have trouble getting transportation to medical appointments?: No Do you have trouble paying your heating and electricity bill?: No Do you have trouble taking care of your child, family member or friend?: No Do you have trouble with day-to-day activities such as bathing, preparing meals, shopping, managing finances, etc.?: No Are you currently unemployed and looking for a job?: No Are you interested in more education?: Yes Please select the resources that you would like help with: None Currently or been in a relationship where the following occur: No concerns reported THRIVE Score: 0 MADALYN-7 AMB Questionnaire MADALYN-7 Date MADALYN - 7 assessed: 06/05/24 Source: Developed by Drs. Abbe Estrada, Maryse Li, Keny Christopher and colleagues, with an educational randy from [employer] Category. Physical exam (Primary Care) Tobacco/Smoking Status: Tobacco use Status Tobacco use date assessed 06/05/24 07/08/24 09:15 Patient Tobacco Use Status Never used Tobacco 07/08/24 09:15 e-Cigarette/Vaping Use Never Used 07/08/24 09:15 Thrive Assessment: Date of Thrive Assessment Date Thrive assessed 06/05/24 07/08/24 09:15 Currently or been in a relationship where the following occur: No concerns reported Telehealth Telehealth Telehealth Platform: [employer] Location of provider rendering services: practice address Location of patient: address on file Patient Identification confirmed using: Name, : Yes Telehealth method: voice only Patient verbally consented to treatment: Yes Patient verbally consented to billing insurance company: Yes Patient informed of any privacy concerns related to visit: Yes Minutes spent on Phone/Video with Pt.: 8 Coding Level of Care Code Tele Est Pt Level 2 (76167) Complex EM visit Add On G2211 Diagnoses Mixed obsessional thoughts and acts F42.2 Obsessive-compulsive disorder type: mixed obsessional thoughts and acts MADALYN (generalized anxiety disorder) F41.1 Tachycardia R00.0 Assessment & Plan Assessment & Plan (1) OCD (obsessive compulsive disorder): Code(s): F42.9 - Obsessive-compulsive disorder, unspecified Category: Medical Qualifiers: Obsessive-compulsive disorder type: mixed obsessional thoughts and acts Qualified Code(s): F42.2 - Mixed obsessional thoughts and acts (2) MADALYN (generalized anxiety disorder): Code(s): F41.1 - Generalized anxiety disorder Category: Medical (3) Tachycardia: Code(s): R00.0 - Tachycardia, unspecified Plan: resolved see log Plan . Medications: Refilled 2 paroxetine HCl 10 mg PO DAILY 30 tabs 1RF
== END 2024-07-08 12:37 | disposition home or self-care (01) ==
LOC: HO.HMCFM 08:41
PROVIDERS: PCP Nurse Practitioner Family; Visit Provider Nurse Practitioner Family
DX: F42.2 Mixed obsessional thoughts and acts (principal); F41.1 Generalized anxiety disorder; R00.0 Tachycardia, unspecified

== ENCOUNTER → 2024-07-08 08:41 | Outpatient (BNVA) | payer OTHER, SELFPAY | PROVIDERS: PCP Nurse Practitioner Family; Visit Provider Nurse Practitioner Family ==

== ENCOUNTER 2024-09-06 15:29 | Outpatient (AMB) | payer OTHER, SELFPAY ==
--- OUTSIDE RECORDS SUMMARY | 2024-09-06 15:31 | XMS_ITS | Clinical Summary ---
Author Organization [facility] Address [address] [place] [address] Care Team Providers Care Document Preparation Specialist Name Role Phone Unavailable Primary Care Provider Unavailabl e Source Comments PLEASE NOTE, if this patient is a minor, it may be UNLAWFUL to discuss sensitive information that is contained in these records (such as FAMILY PLANNING, MENTAL HEALTH or SUBSTANCE ABUSE) with the minor patient's parent or other person without the patient's specific authorization.[facility] Allergies No known active allergies Immunizations Name Administration Dates Next Due Pfizer COVID-19 (Comirnaty), Mrna, Lnp-s, Pf, Kraig-sucrose, 30 Mcg/0.3 Ml, 12yr+ 05/17/2023 Social History Tobacco Use Types Packs/Day Years Used Date Smoking Tobacco: Never Assessed Social Connections Answer Date Recorded Connectedness 0 04/06/2024 Financial Resource Strain Answer Date R ecorded Financial Resource Strain 0 2022 Stress Answer Date Recorded Stress 0 12/20/2022 Physical Activity Answer Date Recorded Physical Activity 0 12/20/2022 Food Insecurity Answer Date Recorded Food 0 12/20/2022 Transportation Needs Answer Date Record ed Transportation 0 12/20/2022 Housing Stability Answer Date Recorded Housing 0 12/20/2022 Safety and Environment Answer Date Arron rded Safety 0 12/20/2022 Utilities Answer Date Recorded Utilities 0 12/20/2022 Employment Answer Date Recorded Employment 0 12/20/2022 Comments Unknown Sex and Gender Information Value Date Recorded Sex Assigned at Female 12/20/2022 11:24 AM PDT Legal Sex Female 9:46 AM PDT Gender Identity Female 12/20/2022 11:24 AM PDT Sexual Orientation Straight 12/20/2022 11 :24 AM PDT Last Filed Vital Signs Vital Sign Reading Time Taken Comments Blood Pressure 119/83 03/12/2024 4:22 PM EDT Pulse 94 03/12/2024 4:22 PM EDT Temperature 37.1 ??C (98.8 ??F) 03/12/2024 4:22 PM ED T Respiratory Rate - - Oxygen Saturation 98% 03/12/2024 4:22 PM EDT Inhaled Oxygen Concentration - - Weight 49.2 kg (108 lb 6.4 oz) 03/12/2024 4:22 P M EDT Height 161 cm (5' 3.39 ) 03/12/2024 4:22 PM EDT Body Mass Index 18.97 03/12/2024 4:22 PM EDT Plan of Treatment Health Maintenance Due Date Last Done Comments HPV Screening 1999 Hepatitis C Screening 1999 Pap + HPV 1999 Tobacco Screening 1999 HIV Screening 11/19/2014 Imm-HPV (1 - 3-dose series) 11/19/2014 Annual Preventive Care Visit 11/19/2017 Cervical Cancer Screening 11/19/2020 Pap Smear 11/19/2020 Imm-Varicella (2 of 2 - 13+ 2-dose series) 04/06/2022 03/09/2022 Relationship Safety Screening/Counseling 12/21/2023 12/20/2022 [id number] ( season) 2024 05/17/2023, 07/19/2021, 08/13/2020, Additional history exists Imm-Influenza (#1) 2024 03/31/2023, 1 , 05/19/2017, Additional history exists Alcohol and Drug Screen 07/31/2024 12/20/2022 Depression Annual Screen 07/31/2024 12/20/2022 Chlamydia Screening 03/12/2025 03/12/2024, 07/19/2023, 12/20/2022 Gonorrhea Screening 03/12/2025 03/12/2024, 07/19/2023, 12/20/2022 Hypertension Screening (#1) 03/12/2027 Imm-DTaP/Tdap/Td (3 - Td or Tdap) 05/19/2027 017, 04/30/2016 Imm-Hepatitis B Completed 09/26/2022, 04/01, 03/25/2022 Cervical Ablation/Cold-Knife Conization Discontinued Cervical Cryotherapy Discontinued Colposcopy Discontinued Endometrial Biopsy Discontinued Excision/Leep Discontinued HPV Genotyping Discontinued Vaginal Pap Discontinued Vulvoscopy Discontinued Procedures Procedure Name Priority Date/Time Associated Diagnosis Comments CHLAMYDIA TRACHOMATIS/ NEISSERIA GONORRHOEAE,PCR,URI NE Routine 03/12/2024 5:11 PM EDT Routine screening for STI (sexually transmitted infection) from Last 3 Months or Most Recently Relevant to Health Maintenance Results * CHLAMYDIA TRACHOMATIS/ NEISSERIA GONORRHOEAE,PCR,URINE (03/12/2024 5:11 PM EDT) CHLAMYDIA TRACHOMATIS, PCR, URINE Negative Negative TEXT [facility] NEISSERIA GONORRHOEAE, PCR, URINE Negative Negative TEXT [facility] Comment: This assay (CT/NG) has not been evaluated in patients younger than 14 years of age. Assay performance has NOT been validated for patient specimens self-collected at home or otherwise self collected outside the clinical setting. This assay is not intended to replace other exams or tests for diagnosis of urogenital infection. A negative test result does not preclude a possible infection. This assay should not be used to determine therapeutic success because nucleic acids may be present after antimicrobial therapy. False negative and/or invalid test results are possible for endocervical specimens with mucus, urine with whole blood, and for urogenital specimens from patients using various xsfa-mgs-pwydzjy vaginal gels and moisturizers. This assay has not been evaluated for the effects of variables such as vaginal discharge, use of tampons, douching, midstream instead of first catch urines, antimicrobial agents active against assay targets, and patients with a history of hysterectomy. Specimens with very high concentrations of C. trachomatis may affect detection of N. gonorrhoeae when it is present at concentrations near the assay limit of detection. Urine Urine specimen / Unknown 03/12/2024 5:11 PM EDT 03/12/2024 6:33 PM EDT us Colleen Mosley NP LAB - NO BLOOD DRAW Final Resu lt [facility] [address] [facility] [place] [address], from Last 3 Months or Most Recently Relevant to Health Maintenance Insurance [employer] [place] Member Subscriber Plan / Payer (Ef fective 2019-Present) Name:Jocelyn Galvin Relation to Subscriber:Self Name:Jocelyn Galvin Payer ID:[id number] Type:Indemnity Address: [facility] [address] [place] [address]
--- OUTSIDE RECORDS SUMMARY | 2024-09-06 15:31 | XMS_ITS | Patient Health Record ---
Author Organization [facility] Address [address] [place], [place] [id number] Care Team Providers Care Mobile Security Architect Name Role Phone other PCP, not listed Primary Care Provider Unav ailable Syl Cordova Unavailable [phone] Allergies No Known Allergies Reason For Referral No Information Medications Medication SIG (Take, Route, Frequency, Duration) Notes Start Date End Date Status No OTC medications . Active Control Pills per veneer drier tailer as directed Active Social History Tobacco Use: Social History Observation Description Date Details (start date - stop date) Never Smoker NA - NA Tobacco use (structured) Question Answer Notes Tobacco Use: Never tobacco user Plan Of Treatment No Information Insurance Providers Payer Name Payer Address Payer Phone Subscriber Number Group Number Insured Name Patient Relationship to Insured Coverage Start Date Coverage End Date [address] [place] [phone] [id number] Jocelyn Galvin Self - patient is the insured
--- NOTE | 2024-09-06 16:29 | MHC.PC.OV ---
Intake Visit Reasons: 8wk f/u [phone] MADALYN Allergies No Known Allergies [No Known Allergies*] Allergy (Verified 07/08/24 09:21) Medication List - Last Reconciled 09/06/24 by JEAN CLAUDE CarlosP- baclofen 10 mg PO Q12H PRN 30 days drospirenone-ethinyl estradiol 3-0.02 mg (Skylar (28)) 1 tab PO DAILY paroxetine HCl 10 mg PO DAILY Tobacco use date assessed: 09/06/24 Dental Screening Dental Screen Date: 09/06/24 Did you have a dental visit in the last 12 months?: Yes Did you have a dental problem in the last 6 months where you did not have access to dental care?: No Was dental information given to patient?: Patient has dentist HPI HPI Comments History of Present Illness Details Tele video visit via [employer] The patient is a 23-year-old female with follow-up concerns regarding her previously diagnosed Generalized Anxiety Disorder with OCD tendencies, management of angular cheilitis, and work-related stress. Her anxiety symptoms appear to be better managed than previously, with improvements noted in her interpersonal interactions and response to stress but still requiring further management. She reports a recent increase in obsessive-compulsive tendencies, particularly manifesting as heightened handwashing, given her work exposure to flu-positive pediatric patients. The patient also experiences angular cheilitis, primarily exacerbated by mask-wearing at work, which has led to increased dryness and bumpy skin around the lips. She has previously used hydrocortisone with moderate success but now seeks further medical guidance on persistent symptoms. Additionally, the patient is coping with stress from a workplace incident involving a suicidal patient, which has prompted discussions about utilizing Employee Assistance Program resources for psychological support. There were no physical injuries reported from the incident, but an awareness of the potential psychological impact has been acknowledged. 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 - Housing: Experiences issues with apartment heating, leading to uncomfortable living conditions. Resides with a roommate. - Education: Currently enrolled in a program while managing work and studies. - Family Status: Contacts parents frequently; supportive family involvement noted. - Functional Status: Able to maintain normal daily activities despite stressors. - Nutrition: No specific dietary details provided. Physical Exam limited by Video General: Awake, alert. No apparent distress Eyes: Sclera and conjunctiva clear bilaterally Skin around mouth and under nose erythematous and dry, no drainage SKin to hands dry and erythematous Mood and affect appropriate Discussion Notes During the visit, I discussed increasing the dosage of paroxetine to better manage the patient's anxiety and OCD tendencies, given the ongoing stressors from her work environment and current symptoms. We reviewed the patient's response to the medication thus far and agreed on a cautious increase in the dosage from 10 mg to 15 mg daily. I advised on the use of topical treatments for her angular cheilitis, including a new prescription for desonide ointment and antifungal cream, and instructed her on applying Vaseline to protect her facial skin under a mask. We explored the potential for using Employee Assistance Program resources at work to address the psychological impact of recent workplace incidents. Plan The patient's Generalized Anxiety Disorder with OCD tendencies will be managed with an increased paroxetine dosage to 15 mg daily, with the intent to enhance her response to the medication and mitigate current symptoms. Monitoring for adverse effects or continued OCD manifestations is advised. For angular cheilitis, I prescribed a combination of desonide ointment and antifungal cream. Applying Vaseline daily should help maintain skin integrity and reduce irritation from prolonged mask usage. To address the patient's work-related stress and its psychological ramifications, I encouraged the use of Employee Assistance Program resources, which could provide beneficial coping strategies and support. These combined strategies will aid in managing her stress and maintaining psychological well-being amidst her challenging work environment Patient was informed and verbally consented to the use of an ambient scribe for clinic note documentation during this visit. Return to office in 6-8 weeks to follow up on med increase via telehealth message sent to office to arrange [facility] Medical History (Updated 09/06/24 @ 17:28 [facility] Arthritis Back pain Lumbar spondylosis Surgical History H/O elbow surgery History of surgery Hx of wisdom tooth extraction Family History (Updated 06/05/24 @ 12:11 by Ayah Camp MA) Father HTN (hypertension) Maternal Aunt Breast cancer, Onset Age: 47 Colon cancer Maternal Aunt Breast cancer Mother BRCA negative Social History (Updated 06/05/24 @ 12:10 by Ayah Camp MA) Household Members: Family Both parents involved: Yes Caregiver staying overnight: No Housing: House Are you a primary geriatric personal care aide to a significant other at home: No Do you presently have visiting nurse or other home services: No 75 years or older and lives alone: No Alcohol intake: never Patient Tobacco Use Status: Never used Tobacco e-Cigarette/Vaping Use: Never Used Second Hand Smoke Exposure: No service: No Current occupational status: employed 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 Sexual orientation: Straight/Heterosexual Gender identity: Female Cognitive needs: No Hearing needs: No Vision needs: Yes (contacts) Female Reproductive History Menstrual Age of Menarche: 16 Questionnaire Thrive Questionnaire Date Thrive assessed: 06/05/24 I am a: Patient What is your living situation today?: I have a steady place to live Within the past 12 months, did the food you bought not last and you didn't have the money to get more?: Never true Within the past 12 months, did you worry whether your food would run out before you got money to buy more?: Never true Do you have trouble paying for medicines?: No Do you have trouble getting transportation to medical appointments?: No Do you have trouble paying your heating and electricity bill?: No Do you have trouble taking care of your child, family member or friend?: No Do you have trouble with day-to-day activities such as bathing, preparing meals, shopping, managing finances, etc.?: No Are you currently unemployed and looking for a job?: No Are you interested in more education?: Yes Please select the resources that you would like help with: None Currently or been in a relationship where the following occur: No concerns reported THRIVE Score: 0 AUDIT C Alcohol Use Questionnaire (AUDIT-C) 1. How often do you have a drink containing alcohol?: Monthly or less 2. How many drinks containing alcohol do you have on a typical day when you are drinking?: 1 or 2 3. How often do you have six or more drinks on one occasion?: Never Total Score: 1 Score Reviewed/Action Taken: Yes MADALYN-7 AMB Questionnaire MADALYN-7 Date MADALYN - 7 assessed: 06/05/24 Source: Developed by Drs. Abbe Estrada, Maryse Li, Keny Christopher and colleagues, with an educational randy from [employer]. Physical exam (Primary Care) Tobacco/Smoking Status: Tobacco use Status Tobacco use date assessed 06/05/24 07/08/24 09:15 Patient Tobacco Use Status Never used Tobacco 07/08/24 09:15 e-Cigarette/Vaping Use Never Used 07/08/24 09:15 Thrive Assessment: Date of Thrive Assessment Date Thrive assessed 06/05/24 07/08/24 09:15 Currently or been in a relationship where the following occur: No concerns reported Telehealth Telehealth Telehealth Platform: [employer] Location of provider rendering services: practice address Location of patient: address on file Patient Identification confirmed using: Name, : Yes Telehealth method: video Patient verbally consented to treatment: Yes Patient verbally consented to billing insurance company: Yes Patient informed of any privacy concerns related to visit: Yes Minutes spent on Phone/Video with Pt.: 40 Coding Level of Care Code Tele Est Pt Level 5 (93852) Complex EM visit Add On G2211 Diagnoses MADALYN (generalized anxiety disorder) F41.1 Mixed obsessional thoughts and acts F42.2 Obsessive-compulsive disorder type: mixed obsessional thoughts and acts Angular cheilitis K13.0 Assessment & Plan Assessment & Plan (1) MADALYN (generalized anxiety disorder): Code(s): F41.1 - Generalized anxiety disorder Category: Medical (2) OCD (obsessive compulsive disorder): Code(s): F42.9 - Obsessive-compulsive disorder, unspecified Category: Medical Qualifiers: Obsessive-compulsive disorder type: mixed obsessional thoughts and acts Qualified Code(s): F42.2 - Mixed obsessional thoughts and acts (3) Angular cheilitis: Code(s): K13.0 - Diseases of lips Category: Medical Plan . Medications: New desonide 0.05% 1 appl topical BID 60 grams 2RF clotrimazole 1% 1 appl topical BID 4 weeks 30 grams 2RF Changed From paroxetine HCl 10 mg PO DAILY 30 tabs 1RF To paroxetine HCl 15 mg (1.5 x 10 mg) PO DAILY 45 tabs 1RF Patient Instructions: Patient Instructions - Increase paroxetine to 15 mg daily as prescribed. - Use desonide ointment and antifungal cream as directed, applying Vaseline before putting on a mask. - Consider reaching out to Employee Assistance Program resources for psychological support. - Monitor and report any changes in symptoms or side effects from medications. - Make necessary arrangements to manage any persistent housing issues impacting health.
== END 2024-09-06 17:05 | disposition home or self-care (01) ==
LOC: HO.HMCFM 15:29
PROVIDERS: PCP Nurse Practitioner Family; Visit Provider Nurse Practitioner Family
DX: F41.1 Generalized anxiety disorder (principal); F42.2 Mixed obsessional thoughts and acts; K13.0 Diseases of lips

== ENCOUNTER 2024-11-04 13:49 | Outpatient (AMB) | payer OTHER, SELFPAY ==
--- NOTE | 2024-11-04 13:51 | MHC.PC.OV ---
Intake Visit Reasons: fu paxil increase Intake Note: telehealth to review med Medicare Sales Representative Required: No Allergies No Known Allergies [No Known Allergies*] Allergy (Verified 11/04/24 16:59) Medication List - Last Reviewed 11/04/24 by Ayah Soto MA baclofen 10 mg PO Q12H PRN 30 days clotrimazole 1% 1 appl topical BID 4 weeks desonide 0.05% 1 appl topical BID drospirenone-ethinyl estradiol 3-0.02 mg (Skylar (28)) 1 tab PO DAILY paroxetine HCl 15 mg (1.5 x 10 mg) PO DAILY Tobacco use date assessed: 11/04/24 Dental Screening Dental Screen Date: 11/04/24 Did you have a dental visit in the last 12 months?: Yes Did you have a dental problem in the last 6 months where you did not have access to dental care?: No Was dental information given to patient?: Patient has dentist HPI HPI Comments History of Present Illness Details History of Present Illness Telehealth visit to follow up on OCD and generalized anxiety disorder. At the last office visit her Paxil was increased from 10 mg to 15 mg daily. Reports that she was taking as directed. He was much less stressed and much happier about things in general. In regards to her OCD tendencies which can include behaviors such as over washing of hands she does feel that these behaviors are the same. However she reports improvement in the skin of her hands. Feels like with the 1st time in a long time the skin is normal. She denies any SI or HI. She does wonder if she would have improved benefit with an increase in Paxil. In regards to the angular colitis and rash around her chin and face made worse by wearing a mask at work, she reports that the topical desonide topical antifungal combination has provided the best benefit. However she continues to break out on the left side of her face. She reports that she has a recurrence of small flesh-colored bumps on the left side of her face. She was active with [facility], [facility], and her next appointment is in February. Over the notes she did have norovirus a few days ago. She did require antiemetics and IV fluids. She is completely recovered at this time. Assessment and Plan The plan will be to increase her Paxil from 15 mg to 20 mg daily. She was plenty of the 10 mg tablets on hand at home. She can take 2 of them at the same time. In regards to the rash on her chin I have advised for her to reach out to [facility] and see if they can schedule her a sooner appointment in February for an evaluation and treatment at this ongoing rash. In the meantime she should sparingly use the topical desonide. Reminded of the need for a steroid holiday of 1 week to protect the skin. Continue to use things like Vaseline to hydrate the skin. Would like to see her back in about 8 weeks. I have sent a message to my front office staff to arrange for a telehealth follow up at that time. As always the patient was asked to reach out to me via the portal should she have any changes in her health. Telehealth Attestation The patient has been explained that this is an interactive (audio/video) telehealth encounter and what that consists of. The patient understands and wishes to proceed. [employer] platform was used. Total time spent caring for the patient today was 30 minutes. This includes time spent before the visit reviewing the chart, time spent during the visit, and time spent after the visit on documentation, reviewing laboratory results, diagnostic imaging, medications, performing a medically necessary evaluation, counseling on diagnoses, care coordination, ordering appropriate tests, ordering appropriate medications, review of tests performed by other providers, reporting test results with the patient, communication with other healthcare providers. [facility] Medical History (Updated 09/06/24 @ 17:28 by Liyah Swann, [facility]) Arthritis Back pain Lumbar spondylosis Surgical History H/O elbow surgery History of surgery Hx of wisdom tooth extraction Family History (Updated 06/05/24 @ 12:11 by Ayah Camp MA) Father HTN (hypertension) Maternal Aunt Breast cancer, Onset Age: 47 Colon cancer Maternal Aunt Breast cancer Mother BRCA negative Social History (Updated 06/05/24 @ 12:10 by Ayah Camp MA) Household Members: Family Both parents involved: Yes Caregiver staying overnight: No Housing: House Are you a primary health care law specialist to a significant other at home: No Do you presently have visiting nurse or other home services: No 75 years or older and lives alone: No Alcohol intake: never Patient Tobacco Use Status: Never used Tobacco e-Cigarette/Vaping Use: Never Used Second Hand Smoke Exposure: No service: No Current occupational status: employed 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 Sexual orientation: Straight/Heterosexual Gender identity: Female Cognitive needs: No Hearing needs: No Vision needs: Yes (contacts) Female Reproductive History Menstrual Age of Menarche: 16 Questionnaire Thrive Questionnaire Date Thrive assessed: 06/05/24 I am a: Patient What is your living situation today?: I have a steady place to live Within the past 12 months, did the food you bought not last and you didn't have the money to get more?: Never true Within the past 12 months, did you worry whether your food would run out before you got money to buy more?: Never true Do you have trouble paying for medicines?: No Do you have trouble getting transportation to medical appointments?: No Do you have trouble paying your heating and electricity bill?: No Do you have trouble taking care of your child, family member or friend?: No Do you have trouble with day-to-day activities such as bathing, preparing meals, shopping, managing finances, etc.?: No Are you currently unemployed and looking for a job?: No Are you interested in more education?: Yes Please select the resources that you would like help with: None Currently or been in a relationship where the following occur: No concerns reported THRIVE Score: 0 AUDIT C Alcohol Use Questionnaire (AUDIT-C) 3. How often do you have six or more drinks on one occasion?: Never Total Score: 0 MADALYN-7 AMB Questionnaire MADALYN-7 Date MADALYN - 7 assessed: 06/05/24 Source: Developed by Drs. Abbe Estrada, Maryse Li, Keny Christopher and colleagues, with an educational randy from [facility]. Physical exam (Primary Care) Tobacco/Smoking Status: Tobacco use Status Tobacco use date assessed 11/04/24 11/04/24 14:52 Patient Tobacco Use Status Never used Tobacco 11/04/24 13:52 e-Cigarette/Vaping Use Never Used 11/04/24 13:52 Thrive Assessment: Date of Thrive Assessment Date Thrive assessed 06/05/24 11/04/24 13:52 Currently or been in a relationship where the following occur: No concerns reported Telehealth Telehealth Telehealth [facility]: [facility] Location of provider rendering services: practice address Location of patient: address on file Patient Identification confirmed using: Name, : Yes Telehealth method: voice only Patient verbally consented to treatment: Yes Patient verbally consented to billing insurance company: Yes Patient informed of any privacy concerns related to visit: Yes Minutes spent on Phone/Video with Pt.: 22 Coding Level of Care Code Tele Est Pt Level 4 (68111) Complex EM visit Add On G2211 Diagnoses MADALYN (generalized anxiety disorder) F41.1 Mixed obsessional thoughts and acts F42.2 Obsessive-compulsive disorder type: mixed obsessional thoughts and acts Angular cheilitis K13.0 Assessment & Plan Assessment & Plan (1) MADALYN (generalized anxiety disorder): Code(s): F41.1 - Generalized anxiety disorder Category: Medical (2) OCD (obsessive compulsive disorder): Code(s): F42.9 - Obsessive-compulsive disorder, unspecified Category: Medical Qualifiers: Obsessive-compulsive disorder type: mixed obsessional thoughts and acts Qualified Code(s): F42.2 - Mixed obsessional thoughts and acts (3) Angular cheilitis: Code(s): K13.0 - Diseases of lips Category: Medical Plan . Medications: Changed From paroxetine HCl TAKE 1 AND 1/2 TABLETS (15MG) BY MOUTH DAILY 15 mg (1.5 x 10 mg) PO DAILY 135 tabs 1RF To paroxetine HCl Take 2 tabs (20mg) QD 20 mg (2 x 10 mg) PO DAILY 135 tabs 1RF
--- OUTSIDE RECORDS SUMMARY | 2024-11-04 16:34 | XMS_ITS | Clinical Summary ---
Author Organization [facility] Address [address] [place] [address] Care Team Providers Care Traveling Crane Operator Name Role Phone Unavailable Primary Care Provider Unavailabl e Source Comments PLEASE NOTE, if this patient is a minor, it may be UNLAWFUL to discuss sensitive information that is contained in these records (such as FAMILY PLANNING, MENTAL HEALTH or SUBSTANCE ABUSE) with the minor patient's parent or other person without the patient's specific authorization.[facility] Allergies No known active allergies Immunizations Immunization Administration Dates Next Due Pfizer COVID-19 (Comirnaty), [...] Health Maintenance Due Date Last Done Comments Anxiety Screening 1999 HPV Screening 1999 Hepatitis C Screening 1999 Pap + HPV 1999 Tobacco Screening 1999 HIV Screening 11/19/2014 Imm-HPV (1 - 3-dose series) 11/19/2014 Cervical Cancer Screening 11/19/2020 Pap Smear 11/19/2020 Imm-Varicella (2 of 2 - 13+ 2-dose series) 04/06/2022 03/09/2022 Relationship Safety Screening/Counseling 12/21/2023 12/20/2022 [id number] ( season) 2024 05/17/2023, 07/19/2021, 08/13/2020, Additional [...] CHLAMYDIA TRACHOMATIS, PCR, URINE Negative Negative TEXT [facility] NEISSERIA GONORRHOEAE, PCR, URINE Negative Negative TEXT [facility] Comment: This assay (CT/NG) has not [...] for urogenital specimens from patients using various zgql-hyy-zwyzipk vaginal gels and moisturizers. This assay has [...] - NO BLOOD DRAW Final Resu lt [facility] [address] [facility] [place] [address], from Last 3 Months or Most Recently Relevant to Health Maintenance Insurance [employer] [place] Member Subscriber Plan / Payer (Ef fective 2019-Present) Name:Jocelyn Galvin Relation to Subscriber:Self Name:Jocelyn Galvin Payer ID:[id number] Type:Indemnity Address: [facility] [address] [place] [address]
--- OUTSIDE RECORDS SUMMARY | 2024-11-04 16:34 | XMS_ITS ---
Author Organization [facility]. Address [address] [place] [phone] Care Team Providers Care Charm Filter Operator Helper Name Role Phone other PCP, not listed Primary Care Provider Unav ailgood Chasecarlito EspinosaSyl Unavailable [phone] Migration, Provider Unavailable Unavailable REASON FOR VISIT Multum To Medispan Conversion Encounter Medications Medication SIG (Take, Route, Frequency, Duration) Notes Start Date End Date Status NO OTC MEDICATIONS . *Please rev iew for potential replacement for e-prescription and drug interaction check* Active CONTROL PILLS PER INTELLIGENCE RESEARCH SPECIALIST DIRECTED *Please review for potential replacement for e-prescription and drug interaction check* Active Encounters Encounter Location Date Provider Diagnosis [facility] [address] [place] [address] [phone] 09/15/2024 Provider Migration Plan Of Treatment No Information Progress Notes * KAMARJocelyn TDOB: [birth year] (23 yo F)Acc No.[id number]:09/15/2024 Patient:?KAMARBridgerJocelyn Tyrone Provider:? :2000???Age:23 Y???Sex:Female D ate:09/15/2024 Phone: Address:[address] [place], [place] [address]Fina Lynn lupemary [phone] Pcp:not listed other PCP Subjective: * Chief Complaints: * ???1. Multum To Medispan Con version Encounter. * Medical History:? * Medications:?Taking CO NTROL PILLS PER INTELLIGENCE RESEARCH SPECIALIST DIRECTED , Notes to Pharmacist: *Please review for potential replacement for e-prescription and drug interaction check*, Taking NO OTC MEDICATIONS . , Notes to Pharmacist: *Please review for potential replacement for e-prescription and drug interaction check* Objective: * Vitals:? Assessment: Plan: * Treatment: * * Sign off status: Completed true * Provider:? Date:?09/15/2024 Generated for Nidia umaña/Damian/Michael on:?11/04/2024 04:33 PM EDT
--- OUTSIDE RECORDS SUMMARY | 2024-11-04 16:34 | XMS_ITS | Patient Health Record ---
Author Organization [facility]. Address [address], [place] [id number] Care Team Providers Care Team Manager Name Role Phone other PCP, not listed Primary Care Provider Unav josephine SalvatoreSyl Hilton Unavailable [phone] Migration, Provider Unavailable Unavailable Allergies No Known Allergies Reason For Referral No Information Medications Medication SIG (Take, Route, Frequency, Duration) Notes Start Date End Date Status NO OTC MEDICATIONS . *Please rev iew for potential replacement for e-prescription and drug interaction check* Active CONTROL PILLS PER QUALIFIED CRAFT WORKER ELECTRICIAN DIRECTED *Please review for potential replacement for e-prescription and drug interaction check* Active Social History Tobacco Use: Social History Observation Description Date Details (start date - stop date) Never Smoker NA - NA Tobacco use (structured) Question Answer Notes Tobacco Use: Never tobacco user Encounters Encounter Location Date Provider Diagnosis [facility]. [address] [place] [phone] 09/15/2024 Provider Migration Plan Of Treatment No Information Insurance Providers Payer Name Payer Address Payer Phone Subscriber Number Group Number Insured Name Patient Relationship to Insured Coverage Start Date Coverage End Date [address] [place] [id number] Jocelyn Galvin Self - patient is the insured
== END 2024-11-04 17:26 | disposition home health service (06) ==
LOC: HO.HMCFM 13:49
PROVIDERS: PCP Nurse Practitioner Family; Visit Provider Nurse Practitioner Family
DX: F41.1 Generalized anxiety disorder (principal); F42.2 Mixed obsessional thoughts and acts; K13.0 Diseases of lips

== ENCOUNTER → 2024-11-04 13:49 | Outpatient (BNVA) | payer OTHER, SELFPAY | PROVIDERS: PCP Nurse Practitioner Family; Visit Provider Nurse Practitioner Family | DX: F41.1 Generalized anxiety disorder (principal); F42.2 Mixed obsessional thoughts and acts; K13.0 Diseases of lips | CPT/HCPCS: 98968 ==

== ENCOUNTER 2025-01-06 15:03 | Outpatient (AMB) | payer OTHER, SELFPAY ==
--- NOTE | 2025-01-06 15:04 | A.OFFPC_ITS ---
Intake Visit Reasons: FU MADALYN, OCD paxil increase Intake Note: Telehealth follow up med increase Cna Pct Required: No Allergies No Known Allergies [No Known Allergies*] Allergy (Verified 01/06/25 17:52) Medication List - Last Reconciled 01/06/25 by RENNY Carlos baclofen 10 mg PO Q12H PRN 30 days clotrimazole 1% 1 appl topical BID 4 weeks desonide 0.05% 1 appl topical BID drospirenone-ethinyl estradiol 3-0.02 mg (Skylar (28)) 1 tab PO DAILY paroxetine HCl 20 mg (2 x 10 mg) PO DAILY Tobacco use date assessed: 01/06/25 Dental Screening Dental Screen Date: 01/06/25 Did you have a dental visit in the last 12 months?: Yes Did you have a dental problem in the last 6 months where you did not have access to dental care?: No Was dental information given to patient?: Patient has dentist HPI HPI Comments History of Present Illness Details 24 y/o FU MADALYN, OCD taking paxil 20mg Stress levels decreased Sx are well controlled. still there but much less went on vacation has a break from school Denies si/hi Skin is good on hands and around mouth has derm appt scheduled in february Plan: cont paxil 20mg QD RTO for CPE, sooner PRN Telehealth Attestation The patient has been explained that this is an interactive (audio/video) telehealth encounter and what that consists of. The patient understands and wishes to proceed. [employer] platform was used. Total time spent caring for the patient today was 21 minutes. This includes time spent before the visit reviewing the chart, time spent during the visit, and time spent after the visit on documentation, reviewing laboratory results, diagnostic imaging, medications, performing a medically necessary evaluation, counseling on diagnoses, care coordination, ordering appropriate tests, ordering appropriate medications, review of tests performed by other providers, reporting test results with the patient, communication with other healthcare providers. [facility] Medical History (Updated 09/06/24 @ 17:28 by RENNY Carlos) Arthritis Back pain Lumbar spondylosis Surgical History H/O elbow surgery History of surgery Hx of wisdom tooth extraction Family History (Updated 06/05/24 @ 12:11 by Ayah Camp MA) Father HTN (hypertension) Maternal Aunt Breast cancer, Onset Age: 47 Colon cancer Maternal Aunt Breast cancer Mother BRCA negative Social History (Updated 06/05/24 @ 12:10 by Ayah Camp MA) Household Members: Family Both parents involved: Yes Caregiver staying overnight: No Housing: House Are you a primary manager primary care to a significant other at home: No Do you presently have visiting nurse or other home services: No 75 years or older and lives alone: No Alcohol intake: never Patient Tobacco Use Status: Never used Tobacco e-Cigarette/Vaping Use: Never Used Second Hand Smoke Exposure: No service: No Current occupational status: employed 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 Sexual orientation: Straight/Heterosexual Gender identity: Female Cognitive needs: No Hearing needs: No Vision needs: Yes (contacts) Female Reproductive History Menstrual Age of Menarche: 16 Questionnaire Thrive Questionnaire Date Thrive assessed: 01/06/25 I am a: Patient What is your living situation today?: I have a steady place to live Within the past 12 months, did the food you bought not last and you didn't have the money to get more?: Never true Within the past 12 months, did you worry whether your food would run out before you got money to buy more?: Never true Do you have trouble paying for medicines?: No Do you have trouble getting transportation to medical appointments?: No Do you have trouble paying your heating and electricity bill?: No Do you have trouble taking care of your child, family member or friend?: No Do you have trouble with day-to-day activities such as bathing, preparing meals, shopping, managing finances, etc.?: No Are you currently unemployed and looking for a job?: No Are you interested in more education?: No THRIVE Score: 0 MADALYN-7 AMB Questionnaire MADALYN-7 Date MADALYN - 7 assessed: 01/06/25 Source: Developed by Drs. Abbe Estrada, Maryse Li, Keny Christopher and colleagues, with an educational randy from [employer]. Physical exam (Primary Care) Tobacco/Smoking Status: Tobacco use Status Tobacco use date assessed 01/06/25 01/06/25 15:06 Patient Tobacco Use Status Never used Tobacco 01/06/25 15:06 e-Cigarette/Vaping Use Never Used 01/06/25 15:06 Thrive Assessment: Date of Thrive Assessment Date Thrive assessed 01/06/25 01/06/25 15:06 Telehealth Telehealth Telehealth Platform: [employer] Location of provider rendering services: practice address Location of patient: address on file Patient Identification confirmed using: Name, : Yes Telehealth method: voice only Patient verbally consented to treatment: Yes Patient verbally consented to billing insurance company: Yes Patient informed of any privacy concerns related to visit: Yes Minutes spent on Phone/Video with Pt.: 10 Coding Level of Care Code Tele Est Pt Level 3 (45603) Complex EM visit Add On G2211 Diagnoses MADALYN (generalized anxiety disorder) F41.1 Mixed obsessional thoughts and acts F42.2 Obsessive-compulsive disorder type: mixed obsessional thoughts and acts Angular cheilitis K13.0 Assessment & Plan Assessment & Plan (1) MADALYN (generalized anxiety disorder): Code(s): F41.1 - Generalized anxiety disorder Category: Medical (2) OCD (obsessive compulsive disorder): Code(s): F42.9 - Obsessive-compulsive disorder, unspecified Category: Medical Qualifiers: Obsessive-compulsive disorder type: mixed obsessional thoughts and acts Qualified Code(s): F42.2 - Mixed obsessional thoughts and acts (3) Angular cheilitis: Code(s): K13.0 - Diseases of lips Category: Medical Plan . Medications: New paroxetine HCl (Paxil) 20 mg PO DAILY 90 tabs 1RF
--- OUTSIDE RECORDS SUMMARY | 2025-01-06 16:50 | XMS_ITS | Clinical Summary ---
Author Organization [facility] Address [address] [place] [address] Care Team Providers Care Movement Education Specialist Name Role Phone Unavailable Primary Care [...] 04/06/2022 03/09/2022 Relationship Safety Screening/Counseling 12/21/2023 12/20/2022 [id number] ( season) 2024 05/17/2023, 07/19/2021, 08/13/2020, Additional history exists Alcohol and Drug Screen 07/31/2024 12/20/2022 Depression Annual Screen 07/31/2024 12/20/2022 Imm-Influenza (Season Ended) 03/31/202507/2022, 05/05/2018, 05/19/2017, Additional history exists Hypertension Screening (#1) 03/12/2027 Imm-DTaP/Tdap/Td (3 - Td or Tdap) 05/19/2027 017, 04/30/2016 Imm-Hepatitis B Completed 09/26/2022, 04/01, 03/25/2022 Cervical Ablation/Cold-Knife Conization Discontinued Cervical Cryotherapy Discontinued Colposcopy Discontinued Endometrial Biopsy Discontinued Excision/Leep Discontinued HPV Genotyping Discontinued Vaginal Pap Discontinued Vulvoscopy Discontinued Insurance [employer] [facility] Member Subscriber Plan / Payer (Ef fective 2019-Present) Name:Jocelyn Galvin Relation to Subscriber:Self Name:Jocelyn Galvin Payer ID:[id number] Type:Indemnity Address: [facility] [address] [place] [address]
== END 2025-01-06 17:49 | disposition home or self-care (01) ==
LOC: HO.HMCFM 15:03
PROVIDERS: PCP Nurse Practitioner Family; Visit Provider Nurse Practitioner Family
DX: F41.1 Generalized anxiety disorder (principal); F42.2 Mixed obsessional thoughts and acts; K13.0 Diseases of lips

== ENCOUNTER → 2025-01-06 15:03 | Outpatient (BNVA) | payer OTHER, SELFPAY | PROVIDERS: PCP Nurse Practitioner Family; Visit Provider Nurse Practitioner Family | DX: F41.1 Generalized anxiety disorder (principal); F42.2 Mixed obsessional thoughts and acts; K13.0 Diseases of lips | CPT/HCPCS: 98968 ==

== ENCOUNTER 2025-03-05 13:20 | Outpatient (AMB) | payer OTHER, SELFPAY ==
--- NOTE | 2025-03-05 13:22 | MHC.PC.OV ---
Vital Signs 03/05/25 13:26 Height 5 ft 3 in Weight 119 lb 4 oz BMI 21.1 BP 98/66 Blood Pressure Location Rt brachial Position Sitting Respiration 12 Pulse 64 Pulse Source Pulse Oximeter Temp 97.1 F Temp Source Oral Pulse Oximetry (%) 100 Oxygen Delivery Method Room Air Intake Visit Reasons: cpe Intake Note: CPE. Section Hand Helper Required: No Allergies No Known Allergies (No Known Allergies*) Allergy (Verified 03/05/25 13:46) Medication List - Last Reconciled 03/05/25 by Liyah Swann, DAIRY CLERK- baclofen 10 mg PO Q12H PRN 30 days clotrimazole 1% 1 appl topical BID 4 weeks desonide 0.05% 1 appl topical BID drospirenone-ethinyl estradiol 3-0.02 mg (Skylar (28)) 1 tab PO DAILY paroxetine HCl (Paxil) 20 mg PO DAILY Tobacco use date assessed: 03/05/25 Dental Screening Dental Screen Date: 03/05/25 Did you have a dental visit in the last 12 months?: Yes Did you have a dental problem in the last 6 months where you did not have access to dental care?: No Was dental information given to patient?: Patient has dentist HPI HPI Comments History of Present Illness Details 24 y/o F with lumbar spondylosis, strong family history of breast cancer, OCD, MADALYN s/p elbow surgery, status post L3-L4 DR L5 radiofrequency ablation performed 08/31/2023 Family hx: Dad HTN, Maternal aunt breast and colon ca age 47, Maternal aunt breast ca, Mother BRCA negative, postmenopausal bleeding s/p uterine bx 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 Specialists [employer] Pain Mgmt Genetics/Breast Surgery Derm Optho - contacts genetic testing performed on 03/28/2023. Genetic testing revealed no clinically significant mutations identified. Her breast cancer risk score was calculated at 11.6 %, below the 20% threshold placing her at high risk for breast cancer. No variance of uncertain significance (VUS) were identified. Based on her clinical history, she was felt to be at elevated risk for colon cancer due to her maternal aunt diagnosis of metastatic colon cancer at the age of 47. Early colonoscopy was recommended at least by the age of 45. A copy of the genetic testing report was provided to the patient for her records Here today for CPE Mood stable on current meds Due for Pap; active at [facility] [place]. Admits anxiety w/ this exam. Skin - recurrent open area to side of mouth, on R, this time w/ honey colored crusting. Otherwise skin has been pretty good. Has Derm appt this month. Review of Systems - Integumentary System: Reports dry and cracked lips, crusting around the mouth. - Nose: crusting and scabs inside L nares, feels dry. - Neurological System: Reports headaches associated with Paxil use. - Reproductive System: Reports period regulation and dysmenorrhea management with control adjustments. - Breast: fullness L breast, outside quad, started w onset on menses w/o lumps or d/c. Denies chance of . Physical Exam General: Well developed, well nourished, in no acute distress. Appears stated age. Head: Normocephalic, atraumatic. Eyes: Pupils are equal, round and reactive to light and accommodation. Conjunctivae are clear. Vision grossly normal. Ears: TMs clear AU, EACS WNL Nose: Patent, without discharge. Neck: Supple, no adenopathy or thyromegaly. Breast: Edu on SBE. Lungs: Clear to auscultation bilaterally. No rales, rhonchi or wheeze noted. Good air flow in all portillo. Heart: Regular rate and rhythm. No murmurs, click, rubs or gallops are noted. Abdomen: Bowel sounds present in all quadrants. The abdomen is soft, nontender, with no masses or organomegaly noted. No hernias are noted. : Deferred. Reviewed recommendations for routine [employer]. Pulses: Peripheral pulses are equal and palpable bilaterally. Extremities: No clubbing, cyanosis nor edema is noted. Neurologic: Gait and station normal. Cranial Nerves 2-12 intact. Motor strength grossly symmetrical and intact. No sensory loss. Balance normal. Skin: No rashes, ulcers, or lesions noted. Turgor is good. Skin color is good. Hair and nails are without abnormalities. Angular chelitis R Psych: Normal eye contact, affect and mood appropriate, and normal interactions. Patient is alert and appropriate to context. Results Pending Discussion Notes We reviewed measures for the dry and cracking lips, concluding that a possible impetigo infection requires further evaluation and management. I advised application of mupirocin twice daily to affected areas and instillation in the nares as a preventative measure against more systemic staphylococcal infections. For her upcoming Pap smear, encouragement and emphasis on its importance were reiterated. Patient was given time to ask questions. All questions were answered to their satisfaction. Patient Instructions - Apply mupirocin ointment to crusted areas twice daily and a small amount in each nostril for 7 days. FU with Derm as scheduled. - Change no medications and continue control as prescribed. - Observe symptoms progression; communicate any adverse developments. - Follow instructions for the Pap smear as discussed. - If L breast tenderness/fullness cont 1 week after completion of period, alert me immediately & I will order imaging. - Labs today - RTO 6 mo for routine fu, telehealth ok, sooner PRN Consent Patient was informed and verbally consented to the use of an ambient scribe for clinic note documentation during this visit. [facility] Medical History (Updated 03/05/25 @ 16:56 by Liyah Swann, [facility]) Arthritis Back pain Lumbar spondylosis Surgical History H/O elbow surgery History of surgery Hx of wisdom tooth extraction Family History (Updated 06/05/24 @ 12:11 by Ayah Camp MA) Father HTN (hypertension) Maternal Aunt Breast cancer, Onset Age: 47 Colon cancer Maternal Aunt Breast cancer Mother BRCA negative Social History (Updated 06/05/24 @ 12:10 by Ayah Camp MA) Household Members: Family Housing: House Are you a primary dog day care attendant to a significant other at home: No Do you presently have visiting nurse or other home services: No Alcohol intake: never Patient Tobacco Use Status: Never used Tobacco e-Cigarette/Vaping Use: Never Used Second Hand Smoke Exposure: No service: No Current occupational status: employed 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 1. Little interest or pleasure in doing things: not at all 2. Feeling down, depressed, or hopeless: not at all 3. Trouble falling or staying asleep, or sleeping too much: not at all 4. Feeling tired or having little energy: not at all 5. Poor appetite or overeating: not at all 6. Feeling bad about yourself - or that you are a failure or have let yourself or your family down: not at all 7. Trouble concentrating on things, such as reading the newspaper or watching television: not at all 8. Moving or speaking so slowly that other people could have noticed. Or the opposite - being so fidgety or restless that you have been moving around a lot more than usual: not at all 9. Thoughts that you would be better off or of hurting yourself in some way: not at all Total score: 0 Depression Screening Interpretation: Negative Depression Screening Done: Yes [id number] - PHQ-9 Billing: Yes Source: Developed by Drs. Abbe Estrada, Maryse Li, Keny Christopher and colleagues, with an educational randy from [employer]. Thrive Questionnaire Date Thrive assessed: 03/05/25 I am a: Patient What is your living situation today?: I have a steady place to live Within the past 12 months, did the food you bought not last and you didn't have the money to get more?: Never true Within the past 12 months, did you worry whether your food would run out before you got money to buy more?: Never true Do you have trouble paying for medicines?: No Do you have trouble getting transportation to medical appointments?: No Do you have trouble paying your heating and electricity bill?: No Do you have trouble taking care of your child, family member or friend?: No Do you have trouble with day-to-day activities such as bathing, preparing meals, shopping, managing finances, etc.?: No Are you currently unemployed and looking for a job?: No Are you interested in more education?: Yes Please select the resources that you would like help with: None Currently or been in a relationship where the following occur: No concerns reported THRIVE Score: 0 AUDIT C Alcohol Use Questionnaire (AUDIT-C) 1. How often do you have a drink containing alcohol?: Monthly or less 3. How often do you have six or more drinks on one occasion?: Never Total Score: 1 Score Reviewed/Action Taken: Yes MADALYN-7 AMB Questionnaire MADALYN-7 Date MADALYN - 7 assessed: 03/05/25 Feeling nervous, anxious, or on edge: 1 = Several days Not being able to stop or control worryin = Several days Worrying too much about different things: 0 = Not at all Trouble relaxin = Not at all Being so restless that it is hard to sit still: 0 = Not at all Becoming easily annoyed or irritable: 0 = Not at all Feeling afraid as if something awful might happen: 0 = Not at all Total MADALYN-7 score (0-4 normal; 5-9 mild; 10-14 moderate; 15-21 severe): 2 Source: Developed by Drs. Abbe Estrada, Maryse Li, Keny Christopher and colleagues, with an educational randy from [employer]. MADALYN-7 Assessment Billing MADALYN-7 Assessment Tool: MADALYN-7 Assessment 67295 Physical exam (Primary Care) Vital Signs: Last Vital Signs Temp 97.1 F 03/05/25 13:26 Pulse 64 03/05/25 13:26 Resp 12 03/05/25 13:26 BP 98/66 03/05/25 13:26 Pulse Ox 100 03/05/25 13:26 Oxygen Delivery Method Room Air 03/05/25 13:26 BMI result Body Mass Index 21.1 Tobacco/Smoking Status: Tobacco use Status Tobacco use date assessed 03/05/25 03/05/25 13:28 Patient Tobacco Use Status Never used Tobacco 03/05/25 13:28 e-Cigarette/Vaping Use Never Used 03/05/25 13:28 PHQ-9: PHQ-9 Score PHQ-9: Total score 0 03/05/25 13:46 Depression Screening Interpretation: Negative Thrive Assessment: Date of Thrive Assessment Date Thrive assessed 03/05/25 03/05/25 13:28 Currently or been in a relationship where the following occur: No concerns reported Coding Level of Care Code Est Pt Prev Care 18-39y([id number]) Diagnoses Adult general medical exam Z00.00 MADALYN (generalized anxiety disorder) F41.1 Mixed obsessional thoughts and acts F42.2 Obsessive-compulsive disorder type: mixed obsessional thoughts and acts Angular cheilitis K13.0 Cervical cancer screening Z12.4 Family history of colon cancer Z80.0 Family history of breast cancer Z80.3 Breast tenderness in female N64.4 Additional Codes MADALYN-7 Assessment Billing - MADALYN-7 Assessment Tool: MADALYN-7 Assessment [id number] ([id number]) PHQ-9 - 63644 - PHQ-9 Billing: Yes ([id number]) Assessment & Plan Assessment & Plan (1) Adult general medical exam: Onset Date: ~03/05/25 Code(s): Z00.00 - Encounter for general adult medical examination without abnormal findings Category: Medical (2) MADALYN (generalized anxiety disorder): Code(s): F41.1 - Generalized anxiety disorder Category: Medical (3) OCD (obsessive compulsive disorder): Code(s): F42.9 - Obsessive-compulsive disorder, unspecified Category: Medical Qualifiers: Obsessive-compulsive disorder type: mixed obsessional thoughts and acts Qualified Code(s): F42.2 - Mixed obsessional thoughts and acts (4) Angular cheilitis: Code(s): K13.0 - Diseases of lips Category: Medical (5) Cervical cancer screening: Comment: negative pap 2020, at age 20, next Pap 2023. Code(s): Z12.4 - Encounter for screening for malignant neoplasm of cervix Category: Medical (6) Family history of colon cancer: Comment: genetic testing performed on 03/28/2023. Genetic testing revealed no clinically significant mutations identified. Her breast cancer risk score was calculated at 11.6 %, below the 20% threshold placing her at high risk for breast cancer. No variance of uncertain significance (VUS) were identified. Based on her clinical history, she was felt to be at elevated risk for colon cancer due to her maternal aunt diagnosis of metastatic colon cancer at the age of 47. Early colonoscopy was recommended at least by the age of 45. A copy of the genetic testing report was provided to the patient for her records Code(s): Z80.0 - Family history of malignant neoplasm of digestive organs Category: Medical (7) Family history of breast cancer: Comment: genetic testing performed on 03/28/2023. Genetic testing revealed no clinically significant mutations identified. Her breast cancer risk score was calculated at 11.6 %, below the 20% threshold placing her at high risk for breast cancer. No variance of uncertain significance (VUS) were identified. Based on her clinical history, she was felt to be at elevated risk for colon cancer due to her maternal aunt diagnosis of metastatic colon cancer at the age of 47. Early colonoscopy was recommended at least by the age of 45. A copy of the genetic testing report was provided to the patient for her records Code(s): Z80.3 - Family history of malignant neoplasm of breast Category: Medical (8) Breast tenderness in female: Code(s): N64.4 - Mastodynia Plan: LEFT BREAST Plan . Orders: Orders Comprehensive Met. Panel Today Z00.00 - Encounter for general adult medical examination without abnormal findings Lipid Panel Today Z00.00 - Encounter for general adult medical examination without abnormal findings Hemoglobin A1c Today Z00.00 - Encounter for general adult medical examination without abnormal findings Microalbumin, Random (w Creat) Today Z00.00 - Encounter for general adult medical examination without abnormal findings Vitamin B12 and Folate Today Z00.00 - Encounter for general adult medical examination without abnormal findings IRON PROFILE Today Z00.00 - Encounter for general adult medical examination without abnormal findings TSH reflex Free T4 Today Z00.00 - Encounter for general adult medical examination without abnormal findings Vitamin D 25-OH Total Today Z00.00 - Encounter for general adult medical examination without abnormal findings Medications: New mupirocin calcium 2% 1 appl topical BID 15 grams 0RF Patient Instructions: Health screenings for women You should visit your health care provider from time to time, even if you are healthy. The purpose of these visits is to: Screen for medical issues Assess your risk for future medical problems Encourage a healthy lifestyle Update vaccinations and other preventive care services Help you get to know your provider in case of an illness Information Even if you feel fine, you should still see your provider for regular checkups. These visits can help you avoid problems in the future. For example, the only way to find out if you have high blood pressure is to have it checked regularly. High blood sugar and high cholesterol levels also may not have any symptoms in the early stages. A simple blood test can check for these conditions. There are specific times when you should see your provider or receive specific health screenings. The [place] Preventive Services Task Force publishes a list of recommended screenings. Below are screening guidelines for women ages 18 to 39. BLOOD PRESSURE SCREENING Your blood pressure should be checked at least once every 3 to 5 years if: Your blood pressure is in the normal range (top number less than 120 mm Hg and bottom number less than 80 mm Hg) You don't have risk factors for high blood pressure Ask your provider if you need your blood pressure checked more often if: The top number is 120 to 129 mm Hg or the bottom number is 70 to 79 mm Hg You have diabetes, heart disease, kidney problems, are overweight, or have certain other health conditions You have a first-degree relative with high blood pressure You are Black You had high blood pressure during a If the top number is 130 mm Hg or greater or the bottom number is 80 mm Hg or greater, this is considered stage 1 hypertension. Schedule an appointment with your provider to learn how you can reduce your blood pressure. Watch for blood pressure screenings in your area. Ask your provider if you can stop in to have your blood pressure checked. BREAST CANCER SCREENING Experts do not agree about the benefits of breast self-exams in finding breast cancer or saving lives. Talk to your provider about what is best for you. A screening mammogram is not recommended for most women under age 40. Your provider may discuss and recommend mammograms, MRI scans, or ultrasounds if you have an increased risk for breast cancer, such as: A mother or sister who had breast cancer at a young age (most often starting screening earlier than the age the close relative was diagnosed) You carry a high-risk genetic marker CERVICAL CANCER SCREENING Cervical cancer screening should start at age 21 years unless your provider advises otherwise. After the first test: Women ages 21 through 29 should have a Pap test every 3 years. Exoprts do not agree on whether HPV testing is recommended for this age group. Women ages 30 through 65 should be screened with either a Pap test every 3 years or the HPV test every 5 years or both tests every 5 years (called cotesting ). Women who have been treated for precancer (cervical dysplasia) should continue to have Pap tests for 20 years after treatment or until age 65, whichever is longer. If you have had your uterus and cervix removed (total hysterectomy), and you have not been diagnosed with cervical cancer or precancer (high grade cervical neoplasia), you do not need cervical cancer screening. CHOLESTEROL SCREENING Cholesterol screening should begin at: Age 45 for women with no known risk factors for coronary heart disease Age 20 for women with known risk factors for coronary heart disease Repeat cholesterol screening should take place: Every 5 years for women with normal cholesterol levels More often if changes occur in lifestyle (including weight gain and diet) More often if you have diabetes, heart disease, kidney problems, or certain other conditions DIABETES SCREENING You should be screened for diabetes starting at age 35 and then repeated every 3 years if you have no risk factors for diabetes. Screening may need to start earlier and be repeated more often if you have other risk factors for diabetes, such as: You have a first degree relative with diabetes. You are overweight or have obesity. You have high blood pressure, prediabetes, or a history of heart disease. Screening for diabetes should be done if you are planning to become and you are overweight and have other risk factors such as high blood pressure. DENTAL EXAM Go to the dentist once or twice every year for an exam and cleaning. Your dentist will evaluate if you need more frequent visits. EYE EXAM Have an eye exam every 5 to 10 years before age 40. If you have vision problems, have an eye exam every 2 years or more often if recommended by your provider. You should have an eye exam that includes an examination of your retina (back of your eye) at least every year if you have diabetes. IMMUNIZATIONS Commonly needed vaccines include: Flu shot: get one every year. COVID-19 vaccine: ask your provider what is best for you. Tetanus-diphtheria and acellular pertussis (Tdap) vaccine: have one at or after age 19 as one of your tetanus-diphtheria vaccines if you did not receive it as an adolescent. Tetanus-diphtheria: have a booster (or Tdap) every 10 years. Varicella vaccine: receive 2 doses if you never had chickenpox or the varicella vaccine. Hepatitis B vaccine: receive 2, 3, or 4 doses, depending on your exact circumstances. Measles, mumps, and rubella (MMR) vaccine: receive 1 to 2 doses if you are not already immune to MMR. Your provider can tell you if you are immune. Ask your provider about the human papillomavirus (HPV) vaccine if: You have not received the HPV vaccine in the past You have not completed the full vaccine series (you should catch up on this shot) Ask your provider if you should receive other immunizations if you have certain health problems that increase your risk for some diseases such as pneumonia. INFECTIOUS DISEASE SCREENING Women who are sexually active should be screened for chlamydia and gonorrhea up until age 25. Women 25 years and older should be screened for chlamydia and gonorrhea if at high risk. Screening for hepatitis C: All adults ages 18 to 79 should get a one-time test for hepatitis C. people should be screened at every . Screening for human immunodeficiency virus (HIV): All people ages 15 to 65 should get a one-time test for HIV. Depending on your lifestyle and medical history, you may also need to be screened for infections such as syphilis and HIV, as well as other infections. PHYSICAL EXAM All adults should visit their provider from time to time, even if they are healthy. The purpose of these visits is to: Screen for disease Assess your risk of future medical problems Encourage a healthy lifestyle Update your vaccinations and other preventive care services Maintain a relationship with a provider in case of an illness Your height, weight, and BMI should be checked at every exam. During your exam, your provider may ask you about: Depression and anxiety Diet and exercise Alcohol and tobacco use Safety issues, such as using seat belts, smoke detectors, and intimate partner violence Your medicines and risk for interactions SKIN SELF-EXAM Your provider may check your skin for signs of skin cancer, especially if you're at high risk, such as if you: Have had skin cancer before Have close relatives with skin cancer Have a weakened immune system OTHER SCREENING Talk with your provider about colon cancer screening if you have a strong family history of colon cancer or polyps, or if you have had inflammatory bowel disease or polyps yourself. Routine bone density screening of women under 40 is not recommended.
[2025-03-05 13:26] VITALS: BP 98/66; PULSE 64; RESP 12; TEMP 36.2; O2SAT 100; BMI 21.1
--- OUTSIDE RECORDS SUMMARY | 2025-03-05 13:52 | XMS_ITS | Clinical Summary ---
Author Organization [facility] Address [address] [place] [address] Phone Care Team Providers Care Vest Finisher Name Role Phone Dianelys Rich NP Primary Care Provider Allergies No known active allergies Medications MONSERRAT, 28, 3-0.02 mg per tablet Take 1 tablet by mouth daily. 12/25/2023 Active fluconazole (DIFLUCAN) 150 MG tablet Take one tablet today and the second tablet in 72 hours if still in symptoms. 2 tablet 02/03/2024 Active Active Problems Problem Noted Date Diagnosed Date Epidermal inclusion cyst 01/03/2024 Immunizations Immunization Administration Dates Next Due COVID-19 (Pre-05/22) Moderna Vaccine, mRNA, PF 1 09/19/2020 COVID-19 (Pre-05/22) Pfizer Vaccine, mRNA, PF ,07/23/2020 Family History Medical History Relation Comments Hypertension Father Relation Status Comments Father Alive Mother Alive Social History Tobacco Use Types Packs/Day Years Used Date Smoking Tobacco: Never Smokeless Tobacco: Never Tobacco Cessation:Counseling Given: Not Answered Alcohol Use Standard Drinks/Week Comments Yes 1 (1 standard drink = 0.6 oz pur e alcohol) Education Answer Date Recorded Are you interested in more education? Not on haylee e 11/26/2022 Are you concerned about learning? Not on file 11/26/2022 No 11/26/2022 No 11/26/2022 Digital Access Answer Date Recorded No 12/21/2022 No 12/21/2022 Reliable internet access at home? Not on file 12/21/2022 Device with a working camera? Not on file Intimate Partner Violence Answer Date R ecorded Are you denied basic needs s uch as food, clothing, or medical care? No 08/24/2022 In the past 12 months have y ou been in a relationship with a person who hurts, threatens, or tries to control you? No 08/24/2022 Are you denied basic needs s uch as food, clothing, or medical care? No 08/24/2022 In the past 12 months have y ou been in a relationship with a person who hurts, threatens, or tries to control you? No 08/24/2022 Comments Unknown Sex and Gender Information Value Date Recorded Sex Assigned at Not on file Legal Sex Female 9:33 PM EDT Gender Identity Not on file Sexual Orientation Not on file Last Filed Vital Signs Vital Sign Reading Time Taken Comments Blood Pressure 111/77 02/03/2024 1:05 PM EDT Pulse 103 02/03/2024 1:05 PM EDT Temperature 37.4 C (99.4 F) 02/03/2024 1:05 PM EDT Respiratory Rate 16 02/03/2024 1:05 PM EDT Oxygen Saturation 97% 02/03/2024 1:05 PM EDT Inhaled Oxygen Concentration - - Weight 49.9 kg (110 lb) 02/03/2024 1:05 PM EDT Height 160 cm (5' 3 ) 02/03/2024 1:05 PM EDT Body Mass Index 19.49 02/03/2024 1:05 PM EDT Plan of Treatment Health Maintenance Due Date Last Done Comments DEPRESSION SCREENING 2011 SMOKING Hx and SMOKELESS TOBACCO SCREENING 11/19/2012 HPV VACCINES (1 - 3-dose series) 11/19/2014 MENINGOCOCCAL VACCINES (B) (2 of 2 - Trumenba SCDM 2-dose series) 10/29/2016 04/30/2016 HEPATITIS C SCREENING 11/19/2017 HIV ONE-TIME SCREENING (18-65 YEARS) 11/19/2017 PAP SMEAR 11/19/2020 COVID-19 VACCINE ( season) 2024 05/17/2023, 07/19/2021, 08/13/2020, Additional history exists Adult Td,Tdap Booster 05/19/2027 05/19/2017, 016 MENINGOCOCCAL VACCINES (ACWY) Completed 05/19/2017, 04/30/2016 HEPATITIS A VACCINES Aged Out No long er eligible based on patient's age to complete this topic HIB VACCINES Aged Out No longer eligi ble based on patient's age to complete this topic PNEUMOCOCCAL VACCINES (0-49 years) Aged Out No longer eligible based on patient's age to complete this topic Medical Devices Not on file Insurance [employer]ENEFITS ADMINISTRATORS [employer] BENEFITS ADMINISTRATORS [employer] BENEFITS ADMINISTRATORS [employer]EFITS ADMINISTRATORS Care Teams Vest Finisher Relationship Specialty Start Date End Date Dianelys Rich NP [address] [address] PCP - General 08/24/22 Additional Source Comments The information contained in this document represents components of the legal health record. It is not the complete legal health record.[facility]
--- OUTSIDE RECORDS SUMMARY | 2025-03-05 13:52 | XMS_ITS | Clinical Summary ---
Author Organization [facility] Address [address] [place] [address] Care Team Providers Care Semiconductor Development Technician Name Role Phone Unavailable Primary Care Provider [...] 94 03/12/2024 4:22 PM EDT Temperature 37.1 C (98.8 F) 03/12/2024 4:22 PM EDT Respiratory Rate - - Oxygen Saturation 98% [...] 04/06/2022 03/09/2022 Relationship Safety Screening/Counseling 12/21/2023 12/20/2022 [id number] ( season) 2024 05/17/2023, 07/19/2021, 08/13/2020, Additional history exists Alcohol and Drug Screen 07/31/2024 12/20/2022 Depression Annual Screen 07/31/2024 12/20/2022 Imm-Influenza (#1) 2025 03/31/2023, 1 , 05/19/2017, Additional history exists Hypertension Screening (#1) 03/12/2027 Imm-DTaP/Tdap/Td (3 - Td or Tdap) 05/19/2027 017, 04/30/2016 Imm-Hepatitis B Completed 09/26/2022, 04/01, 03/25/2022 Cervical Ablation/Cold-Knife Conization Discontinued Cervical Cryotherapy Discontinued Colposcopy Discontinued Endometrial Biopsy Discontinued Excision/Leep Discontinued HPV Genotyping Discontinued Vaginal Pap Discontinued Vulvoscopy Discontinued Insurance [employer] AD[employer]RAT[employer] [facility] Member Subscriber Plan / Payer (Ef fective 2019-Present) Name:Jocelyn Galvin Relation to Subscriber:Self Name:Jocelyn Galvin Payer ID:[id number] Type:Indemnity Address: [facility] [address] [place] [address]
--- OUTSIDE RECORDS SUMMARY | 2025-03-05 13:52 | XMS_ITS | Clinical Summary ---
Author Organization [facility] Address [address] [place] [address] Care Team Providers Care Vice President Of Communications Name Role Phone Unknown, Pcp MD Primary Care Provider Unavailabl e Allergies No known active allergies Medications No known medications Active Problems No known active problems Social History Tobacco Use Types Packs/Day Years Used Date Smoking Tobacco: Never Assessed Smokeless Tobacco: Never Alcohol Use Standard Drinks/Week Comments Never 0 (1 standard drink = 0.6 oz pur e alcohol) Comments No Sex and Gender Information Value Date Recorded Sex Assigned at Not on file Legal Sex Female 11:20 AM EDT Gender Identity Not on file Sexual Orientation Not on file Last Filed Vital Signs Vital Sign Reading Time Taken Comments Blood Pressure 108/71 11/30/2021 11:54 AM EDT Pulse 107 11/30/2021 11:54 AM EDT Temperature 37.6 C (99.7 F) 11/30/2021 10:19 AM EDT Respiratory Rate 16 11/30/2021 11:54 AM EDT Oxygen Saturation 99% 11/30/2021 11:54 AM EDT Inhaled Oxygen Concentration - - Weight - - Height 162.6 cm (5' 4 ) 11/30/2021 10:19 AM EDT Body Mass Index - - Plan of Treatment Not on file Insurance [employer]UE [employer]OSS [employer]OS Care Teams Vice President Of Communications Relationship Specialty Start Date End Date Unknown, PcpMD Unknown Address Unknown [place] [address] PCP - General 11/16/20
--- OUTSIDE RECORDS SUMMARY | 2025-03-05 13:52 | XMS_ITS | Patient Health Record ---
Author Organization [facility] Address [address] [place] [id number] Care Team Providers Care Machine Sorter Name Role Phone other PCP, not listed Primary Care Provider Unav josephine Salvatorecarlito Espinosa Syl Unavailable zMigration, Provider Unavailable Unavailable Allergies No Known Allergies Reason For Referral No Information Medications Medication SIG (Take, Route, Frequency, Duration) Notes Start Date End Date Status NO OTC MEDICATIONS . *Please rev iew for potential replacement for e-prescription and drug interaction check* Active CONTROL PILLS PER BUSINESS MANAGEMENT ANALYST DIRECTED *Please review for potential replacement for e-prescription and drug interaction check* Active Social History Tobacco Use: Social History Observation Description Date Details (start date - stop date) Never Smoker NA - NA Tobacco use (structured) Question Answer Notes Tobacco Use: Never tobacco user Encounters Encounter Location Date Provider Diagnosis [facility] [address] [place] [phone] 09/15/2024 Provider zMigration Plan Of Treatment No Information Insurance Providers Payer Name Payer Address Payer Phone Subscriber Number Group Number Insured Name Patient Relationship to Insured Coverage Start Date Coverage End Date [address] [place] [address] [id number] Jocelyn Galvin Self - patient is the insured
== END 2025-03-05 14:23 | disposition home or self-care (01) ==
LOC: HO.HMCFM 13:21
PROVIDERS: PCP Nurse Practitioner Family; Visit Provider Nurse Practitioner Family
DX: Z00.00 Encounter for general adult medical examination without abnormal findings (principal); F41.1 Generalized anxiety disorder; F42.2 Mixed obsessional thoughts and acts; K13.0 Diseases of lips; Z12.4 Encounter for screening for malignant neoplasm of cervix; Z80.0 Family history of malignant neoplasm of digestive organs; Z80.3 Family history of malignant neoplasm of breast; N64.4 Mastodynia

== ENCOUNTER → 2025-03-05 13:20 | Outpatient (BNVA) | payer OTHER, SELFPAY | PROVIDERS: PCP Nurse Practitioner Family; Visit Provider Nurse Practitioner Family | DX: Z00.00 Encounter for general adult medical examination without abnormal findings (principal); F41.1 Generalized anxiety disorder; F42.2 Mixed obsessional thoughts and acts; K13.0 Diseases of lips; N64.4 Mastodynia; Z80.0 Family history of malignant neoplasm of digestive organs; Z80.3 Family history of malignant neoplasm of breast | CPT/HCPCS: 96127 ==

== ENCOUNTER 2025-03-05 14:31 | Outpatient (REF) | payer OTHER, SELFPAY ==
[2025-03-05 18:21] LABS: Hemoglobin A1C 107.9932 umol/L; Total Hemoglobin (HGBA1C) 3335.7832 umol/L
[2025-03-05 18:54] LABS: Alanine Aminotransferase 10 U/L (0-31); Albumin Level 4.3 g/dL (3.5-5.0); Alkaline Phosphatase 52 U/L (39-117); Anion Gap 11 (12-20); Aspartate Amino Transferase 29 U/L (5-31); Blood Urea Nitrogen 8 mg/dL (9-16); Calcium 9.0 mg/dL (8.4-10.2); Carbon Dioxide 27 mmol/L (22-29); Chloride 106 mmol/L (96-108); Cholesterol 217 mg/dL (<200); Estimated Glomerular Filt Rate > 60; HDL Cholesterol 76 mg/dL (>40); Iron 84 mcg/dL (30-160); Percent Iron Saturation 26 % (15-50); Potassium 3.9 mmol/L (3.3-5.1); Sodium 140 mmol/L (135-145); Total Iron Binding Capacity 329 mcg/dL (228-428); Total Protein 7.0 g/dL (6.5-8.0); Triglycerides 223 mg/dL (<150); Unsaturated Iron Binding 245 ug/dL
[2025-03-05 19:17] LABS: Folate 11.4 ng/mL (> or = 4.0); Vitamin B12 191 pg/mL (200-900)
== END 2025-03-05 14:32 | disposition home or self-care (01) ==
LOC: HO.WFDLDS 14:31
PROVIDERS: Visit Provider Nurse Practitioner Family
DX: Z00.00 Encounter for general adult medical examination without abnormal findings (principal)
CPT/HCPCS: 36415; 80053; 80061; 82306; 82607; 82746; 83036; 83540; 84443

== ENCOUNTER 2025-07-17 09:48 | Outpatient (REF) | payer OTHER, SELFPAY ==
--- OUTSIDE RECORDS SUMMARY | 2025-07-17 11:45 | XMS_ITS | Clinical Summary ---
Author Organization [facility] Address [address] [place] [address] Care Team Providers Care Blasting Gang Miner Name Role Phone Unknown, Pcp MD Primary [...] file Insurance BLUE CROSS OOS Care Teams Blasting Gang Miner Relationship Specialty Start Date End Date Unknown, PcpMD Unknown Address Unknown [place] [address] PCP - General 11/16/20
--- OUTSIDE RECORDS SUMMARY | 2025-07-17 11:45 | XMS_ITS | Clinical Summary ---
Author Organization [facility] Address [address] [place] [address] Phone Care Team Providers Care Director China Name Role Phone Dianelys Rich NP Primary Care Provider [phone] Allergies No known active allergies Medications MONSERRAT, [...] SCREENING (18-65 YEARS) 11/19/2017 PAP SMEAR 11/19/2020 INFLUENZA VACCINE (#1) 2025 , 05/05/2018, 05/19/2017, Additional history exists COVID-19 VACCINE ( season) 2025 05/17/2023, 07/19/2021, 08/13/2020, Additional history exists Adult [...] topic Medical Devices Not on file Insurance [employer] ADMINISTRATORS [employer]RAT[employer]EF[employer] ADMINISTRATORS [employer] Care Teams Director [place] Relationship Specialty Start Date End Date Dianelys Rich NP [address] [place] [address] [place] [address] PCP - General 08/24/22 Additional Source Comments The information contained in this document represents components of the legal health record. It is not the complete legal health record.[facility]
== END 2025-07-17 09:49 | disposition home or self-care (01) ==
LOC: HO.LAB 09:48
PROVIDERS: PCP Nurse Practitioner Family; Visit Provider Nurse Practitioner Family
DX: Z11.1 Encounter for screening for respiratory tuberculosis (principal)
CPT/HCPCS: 36415; 86481

== ENCOUNTER 2025-07-21 17:45 | Emergency (ER) | payer OTHER, SELFPAY ==
--- NOTE | ~2025-07-21 | XR_ITS ---
CLINICAL HISTORY: Coughing. Pneumonia? 2 view chest x-ray Comparison: None provided Findings: No consolidation or effusion. Normal size heart. No acute fracture. IMPRESSION: 1. No acute findings. This document has been electronically signed by: Chilo An MD on 07/21/2025 18:40:14
[2025-07-21 17:54] VITALS: BP 128/73; PULSE 75; RESP 18; TEMP 36.6; O2SAT 99; BMI 19.5
--- NOTE | 2025-07-21 17:57 | ED_ITS ---
HPI - General Adult General Chief complaint: Upper Respiratory Symptoms Stated complaint: ? pnuemonia Time Seen by Provider: 07/21/25 19:14 Source: patient Mode of arrival: ambulatory Limitations: no limitations History of Present Illness ED Provider: Dr. Mitchell Lemos HPI narrative: 24-year-old female with a history of OCD, anxiety, B12 deficiency who presents emergency department for evaluation of not feeling well for about 1 week. Patient states that initially, she had a sore throat, stuffy nose and a nonproductive cough which changed 2 days prior to a cough productive of thick green sputum. The patient also states that over the last several days, she has been experiencing right-sided sharp chest pain which is worse with breathing and coughing. She denied fever but has been having sweats at night. She denied shortness of breath or dyspnea on exertion. She states she has had nausea but no vomiting. She denied myalgias or arthralgias. 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 She states she has also had pneumonia in the past. The patient has not gone on any long trips recent. She has not noticed pain or swelling in her lower extremities. She states that she has been off control pills for at least 3 months. Related Data Previous Rx's ?Medication ?Instructions ?Recorded baclofen 10 mg tablet 10 mg PO Q12H PRN muscle spa sm 30 08/31/23 days #60 tabs clotrimazole 1 % topical cream 1 appl topical BID 4 we eks #30 09/06/24 grams desonide 0.05 % topical ointment 1 appl topical BID #6 0 grams 09/06/24 mupirocin calcium 2 % topical cream 1 appl topical BID #15 grams 03/05/25 drospirenone 3 mg-ethinyl 1 tab PO DAILY #84 tabs 03/31 08/24 estradiol 0.02 mg tablet (Skylar (28)) paroxetine HCl 20 mg tablet (Paxil) 20 mg PO DAILY #90 tabs 04/15/25 valacyclovir 1 gram tablet 1,000 mg PO BID #30 tabs (Valtrex) azithromycin 250 mg tablet See Rx Instructions PO .COM PLEX #6 07/21/25 (Zithromax Z-Salvador) tabs benzonatate 100 mg capsule 200 mg (2 x 100 mg) PO TID PRN 07/21/25 cough #20 caps metoclopramide HCl 10 mg tablet 10 mg PO Q6H PRN nause a and 07/21/25 (Reglan) vomiting #14 tabs Allergies Allergy/AdvReac Type Severity Reaction Status Date / Time No Known Allergies (No Known Allergy Verified 07/21/25 17:56 Allergies*) Review of Systems Review of Systems: Yes all other systems are reviewed and are negative [facility] Past Medical History [facility] Narrative: Social history: She denies tobacco and alcohol use. She occasionally smokes marijuana. Medical History (Updated 07/22/25 @ 00:01 by Matty Atwood) Arthritis Lumbar spondylosis Back pain Surgical History History of surgery Hx of wisdom tooth extraction H/O elbow surgery Family History Family History (Updated 06/05/24 @ 12:11 by Ayah Camp MA) Father HTN (hypertension) Maternal Aunt Breast cancer, Onset Age: 47 Colon cancer Maternal Aunt Breast cancer Mother BRCA negative Social History Social History (Updated 06/05/24 @ 12:10 by Ayah Camp MA) Household Members: Family Housing: House Are you a primary insurance healthcare representative to a significant other at home: No Do you presently have visiting nurse or other home services: No Alcohol intake: never Patient Tobacco Use Status: Never used Tobacco Smoked in Last 30 Days: No e-Cigarette/Vaping Use: Never Used Second Hand Smoke Exposure: No Use of substances other than those prescribed or required for medical reasons: No Advance Directives: No Advance Directives Information Provided: No Do you have a plan to hurt others: No Plan Patient : No service: No Current occupational status: employed 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 Sexual orientation: Straight/Heterosexual Gender identity: Female Cognitive needs: No Hearing needs: No Vision needs: Yes (contacts) Physical Exam ED Vital Signs: Vital Signs - 24 hr 07/21/25 17:54 07/21/25 18:15 07/21/25 19:55 Temperature 97.9 F 97.8 F Pulse Rate 75 80 Respiratory Rate 18 20 Blood Pressure 128/73 134/73 Pulse Oximetry 99 99 98 Oxygen Delivery Method Room Air Room Air Room Air BMI result Body Mass Index 19.5 Vital signs were normal Exam: General: Awake, alert in no distress Head: Normocephalic, atraumatic EENT: PERRL, sclera and conjunctiva are normal, mouth with no erythema or exudates Neck: Supple, no adenopathy Lung: breath sounds symmetric, no wheezing, no rales and no rhonchi Chest: symmetric movement, no chest wall tenderness, no rash seen on the right side of her chest Heart: regular rate and rhythm, normal S1, S2 no murmurs or rubs Abdomen: soft, non-tender, nondistended, normal bowel sounds Back: no vertebral tenderness, no CVAT Extremities: no deformities, moves all extremities symmetrically, no edema Neuro: Awake, alert, oriented, normal speech Psych: Pleasant, cooperative Course Course Course Narrative: RME: 24 yold female presents to the ED for Coughing up green phelghm, SOB, diaphoretic, and 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 Swabs and xray ordered. Medications Administered Discontinued Medications Generic Name Dose Route Start Last Admin Trade Name Freq PRN Reason Stop Dose Admin Azithromycin 500 mg 07/21/25 19:32 07/21/25 19:48 Azithromycin 500 Mg Tablet PO 07/21/25 19:33 500 mg ONCE ONE Administration Benzonatate 200 mg 07/21/25 19:32 07/21/25 19:48 Benzonatate 100 Mg Capsule PO 07/21/25 19:33 200 mg ONCE ONE Administration Medical Decision Making Medical Decision Making [facility] Narrative: 24-year-old female with a history of OCD, anxiety, B12 deficiency who presents emergency department for evaluation of not feeling well for about 1 week. Symptoms include sore throat, nasal congestion, cough which is now productive of green thick sputum x2 days, night sweats, nausea and right-sided pleuritic chest pain. Vital signs were normal. Lung exam was normal with no chest wall tenderness, no rash noted on her right chest where she is experiencing the pain. Differential diagnosis: ?Includes but is not limited to viral syndrome, COVID- 19, influenza, RSV, URI, viral bronchitis, bacterial bronchitis, pneumonia, pulmonary embolism, pleuritic chest pain Course: The patient's COVID-19, influenza and RSV tests were negative. Patient's rapid strep test was negative. Chest x-ray revealed no acute findings. Patient's PERC score was 0 which gives her less than 2% chance of a PE. Patient's presentation and workup is consistent with acute bronchitis with pleuritic chest pain. Given the fact that the patient has been sick for 1 week and there has been a change in her sputum production, I am concerned that she has a bacterial bronchitis. I did discuss this with the patient you shared decision making, we agreed that the patient should be on antibiotics. Patient was prescribed Zithromax Z-Salvador and given her 1st doses Zithromax 500 mg orally here in the emergency department. She was also prescribed Tessalon Perles 200 mg 3 times a day as needed for cough and given her 1st dose here in the emergency department. The patient states that when she takes antibiotics she gets nauseous therefore she was prescribed Reglan 10 mg Q 6-8 hours as needed for nausea. I told her that if she takes his medication at night she can also take Benadryl 25 mg with a and this might help her sleep. Patient was given printed and verbal instructions and discharged home. Differential Diagnosis Differential Diagnoses: The differential diagnosis associated with the presentation includes (See above) Admission/Observation Consideration of admission/observation: Escalation of care including admission/observation considered (No) Lab Data MDM Lab Attestation statement: I reviewed the patient's lab results. Labs: Lab Results 07/21/25 Range/Units 18:19 Influenza Type A (PCR) NEGATIVE (Negative) Influenza Type B (PCR) NEGATIVE (Negative) RSV RNA Qual (PCR) NEGATIVE (Negative) SARS-CoV-2 RNA (RT-PCR) NEGATIVE (Negative) S. pyogenes GrpA MIKA Negative (Negative) Radiology Impression Discussion of test interpretation with radiology: I have reviewed the radiologist's reading. Radiologist Impression: 2 view chest x-ray Comparison: None provided Findings: No consolidation or effusion. Normal size heart. No acute fracture. IMPRESSION: 1. No acute findings. This document has been electronically signed by: Chilo An MD on 07/21/2025 18:40:14 Prescription Management I considered prescription management with: Antibiotic (I prescribed Zithromax Z- Salvador) and Other (Antiemetic: I prescribed Reglan, antitussive: I am prescribed Tessalon Perles) Discharge Plan Discharge Clinical Impression: Acute bronchitis, Pleuritic chest pain Patient Disposition: Home, Self-Care Instructions: Acute Bronchitis (ED) Additional Instructions: Your COVID-19, RSV and influenza tests were negative Your chest x-ray did not reveal any evidence for pneumonia which is reassuring Your right-sided pain is consistent with inflammation of the pleural space or pleurisy. This is caused by your infection. Take Zithromax (azithromycin) Z-Salvador as prescribed. Day 1 take 2 pills, each day after that take 1 pill for total of 5 days. This medication stays in your system for 7-10 days and continues to work despite only taking it for 5 days. You were given your 1st dose this syndrome 500 mg in the emergency department. You can take the Day 1 dose (2 pills) tomorrow evening. Take Reglan 10 mg pill, 1 pill every 6-8 hours as needed for nausea and vomiting. When you take Reglan you can take Benadryl 25 mg , Benadryl will make you sleepy so only do this at night or if you develop any side effects such as stiff rigid neck (dystonia) or a feeling of agitation (akathisia). Take Tessalon Perles (benzonatate) 200 mg pills, 1 pill 3 times a day as needed for cough Take ibuprofen 200 mg pills, 2 pills every 6 hours as needed for pain or fever. Take Tylenol (acetaminophen) 500 mg pills, 2 pills every 6 hours as needed for pain or fever. Follow-up with your doctor in 2 days. Please return to the emergency department if your symptoms get worse or if you develop any symptoms that are concerning to you. Prescriptions: New benzonatate 100 mg capsule 200 mg PO TID PRN (Reason: cough) Qty: 20 0RF azithromycin [Zithromax Z-Salvador] 250 mg tablet See Rx Instructions .ROUTE .COMPLEX Qty: 6 0RF Rx Instructions: take 500 mg today (day 1), then 250 mg for 4 days (days 2-5) metoclopramide HCl [Reglan] 10 mg tablet 10 mg PO Q6H PRN (Reason: nausea and vomiting) Qty: 14 0RF No Action drospirenone-ethinyl estradiol [Skylar (28)] 3-0.02 mg tablet 1 tab PO DAILY Qty: 84 1RF Rx Instructions: Patient and I spoke at the last visit about alternating 2 months of continuous pills, then 1 month with a withdrawal bleed scheduled with placebo pills. paroxetine HCl [Paxil] 20 mg tablet 20 mg PO DAILY Qty: 90 2RF valacyclovir [Valtrex] 1 gram tablet 1,000 mg PO BID Qty: 30 2RF baclofen 10 mg tablet 10 mg PO Q12H PRN (Reason: muscle spasm) 30 Days Qty: 60 4RF desonide 0.05 % ointment 1 appl topical BID Qty: 60 2RF clotrimazole 1 % cream 1 appl topical BID 28 Days Qty: 30 2RF mupirocin calcium 2 % cream 1 appl topical BID Qty: 15 0RF Interventions: ED Discharge Assessment Last Done: 07/21/25 19:55 Discharge Date/Time: 07/21/25 19:56 Print Language: [place] Citizen
[2025-07-21 18:15] VITALS: O2SAT 99
[2025-07-21 18:34] LABS: Strep A Nucleic Acid Negative (Negative)
[2025-07-21 19:04] LABS: Resp Syncy Virus RNA Qual PCR NEGATIVE (Negative); SARS COV2 PCR INHOUSE NEGATIVE (Negative)
--- OUTSIDE RECORDS SUMMARY | 2025-07-21 19:04 | XMS_ITS | Clinical Summary ---
Author Organization [facility] Address [address] [place] [phone] Phone Care Team Providers Care Teletype Clerk Name Role Phone Dianelys Rich NP Primary Care Provider [phone] Allergies No known active allergies Medications MONSERRAT, [...] topic Medical Devices Not on file Insurance Dheere [employer] ADMINISTRATORS Dhe[employer]olo [employer]MINISTRAT[email or web address]ENEF[employer] ADMINISTRATORS [email or web address]MINISTRAT[email or web address]MIN[employer]RAT[email or web address] Care Teams Teletype Clerk Relationship Specialty Start Date End Date Dianelys Rich NP [address] [place] [address] [place] [address] PCP - General 08/24/22 Additional Source Comments The information contained in this document represents components of the legal health record. It is not the complete legal health record.[facility]
--- OUTSIDE RECORDS SUMMARY | 2025-07-21 19:04 | XMS_ITS | Clinical Summary ---
Author Organization [facility] Address [address] [place] [address] Care Team Providers Care Animal Husbandry Worker Name Role Phone Unknown, Pcp MD Primary [...] file Insurance [employer]UE CROSS OOS Care Teams Animal Husbandry Worker Relationship Specialty Start Date End Date Unknown, PcpMD Unknown Address Unknown [place] [address] PCP - General 11/16/20
--- OUTSIDE RECORDS SUMMARY | 2025-07-21 19:04 | XMS_ITS | Patient Health Record ---
Author Organization [facility] Address [address], [place] [id number] Care Team Providers Care Wound Nurse Name Role Phone other PCP, not listed Primary Care Provider Unav josephine Jose Jesús Syl Unavailable [phone] zMigration, Provider Unavailable Unavailable Allergies No Known Allergies Reason For Referral No Information Medications Medication SIG (Take, Route, Frequency, Duration) Notes Start Date End Date Status NO OTC MEDICATIONS . *Please rev iew for potential replacement for e-prescription and drug interaction check* Active CONTROL PILLS PER [employer]CH[employer]IC DIRECTED *Please review for potential replacement for e-prescription and drug interaction check* Active Social History Tobacco Use: Social History Observation Description Date Details (start date - stop date) Never Smoker NA - NA Social History Social History Social Info Question Answer Notes Tobacco use (structured) Date of assessment: 2 Tobacco Use: Never tobacco user Encounters Encounter Location Date Provider Diagnosis [facility] [address] [place] [id number] 09/15/2024 Provider [facility] Plan Of Treatment No Information Insurance Providers Payer Name Payer Address Payer Phone Subscriber Number Group Number Insured Name Patient Relationship to Insured Coverage Start Date Coverage End Date [address] [place] [id number] [phone] [id number] Jocelyn Galvin Self - patient is the insured
--- OUTSIDE RECORDS SUMMARY | 2025-07-21 19:04 | XMS_ITS | Clinical Summary ---
Author Organization [facility] Address [address] [place] [address] Care Team Providers Care Resolute Professional Name Role Phone Unavailable Primary Care Provider Unavailabl e Allergies No known active allergies Medications PARoxetine (PAXIL) 20 MG tablet Take 1 tablet (20 mg total) by mouth every morning. Active Social History Tobacco Use Types Packs/Day Years Used Date Smoking Tobacco: Never Assessed Humiliation, Afraid, Rape, and Kick questionnair e Answer Date Recorded Within the last year, have y ou been afraid of your partner or ex-partner? No 04/03/2025 Emotionally Abused Not on file 04/03/2025 Physically Abused Not on file 04/03/2025 Sexually Abused Not on file 04/03/2025 Overall Financial Resource Strain (CARDIA) Answe r Date Recorded How hard is it for you to pa y for the very basics like food, housing, medical care, and heating? Not hard at all 04/03/2025 Hunger Vital Sign Answer Date Recorded Within the past 12 months, y ou worried that your food would run out before you got the money to buy more. Never true 04/03/20 25 Ran Out of Food in the Last Year Not on file 04/03/2025 PRAPARE - Transportation Answer Date Re corded In the past 12 months, has l ack of transportation kept you from medical appointments or from getting medications? No 10/2024 In the past 12 months, has l ack of transportation kept you from meetings, work, or from getting things needed for daily living? No 04/03/2025 Housing Stability Vital Sign Answer Chivo e Recorded In the last 12 months, was t here a time when you were not able to pay the mortgage or rent on time? No 04/03/2025 Number of Times Moved in the Last Year Not on fi le 04/03/2025 At any time in the past 12 m [facility], were you homeless or living in a group home (including now)? No 04/03/2025 [facility] Utilities Answer Date Recorded In the past 12 months has th e electric, gas, oil, or water company threatened to shut off services in your home? No 04/03/2025 Food Insecurity Answer Date Recorded Within the past 12 months, y ou worried that your food would run out before you got the money to buy more. Never true 04/03/20 25 Ran Out of Food in the Last Year Not on file 04/03/2025 Intimate Partner Violence Answer Date R ecorded Emotionally Abused Not on file 04/03/2025 Within the last year, have y ou been afraid of your partner or ex-partner? No 04/03/2025 Physically Abused Not on file 04/03/2025 Sexually Abused Not on file 04/03/2025 Housing Stability Answer Date Recorded Unstable Housing in the Last Year Not on file 04/03/2025 In the last 12 months, was t here a time when you were not able to pay the mortgage or rent on time? No 04/03/2025 [address] Lived in the Last Year Not on f ile 04/03/2025 Comments Unknown Sex and Gender Information Value Date Recorded Sex Assigned at Female 04/02/2025 8:40 PM EDT Legal Sex Female 8:30 PM EDT Gender Identity Female 04/02/2025 8:40 PM EDT Sexual Orientation Not on file Last Filed Vital Signs Vital Sign Reading Time Taken Comments Blood Pressure 113/78 04/03/2025 10:01 AM EDT Pulse 84 04/03/2025 10:01 AM EDT Temperature 36.4 C (97.6 F) 04/03/2025 10:01 AM EDT Respiratory Rate 18 04/03/2025 10:01 AM EDT Oxygen Saturation 97% 04/03/2025 10:01 AM EDT Inhaled Oxygen Concentration - - Weight - - Height - - Body Mass Index - - Plan of Treatment Health Maintenance Due Date Last Done Comments Depression Screening 2011 Hepatitis C Screening 11/19/2017 DTaP,Tdap,and Td Vaccines (1 - Tdap) 11/19/2018 Cervical Cancer Screening 11/19/2020 Pap Smear 11/19/2020 COVID-19 Vaccine ( season) 2025 05/17/2023, 07/19/2021, 08/13/2020, Additional history exists Influenza Vaccine (#1) 2025 Blood Pressure 04/03/2029 04/03/2025 Meningococcal B Vaccines Aged Out No longer eligible based on patient's age to complete this topic Meningococcal Vaccines Aged Out No lo nger eligible based on patient's age to complete this topic Pneumococcal Vaccine Aged Out No long er eligible based on patient's age to complete this topic Insurance [address] [place] [id number] [employer] [place] [address] [place] [address] [employer] [address] [place] [address]
--- NOTE | 2025-07-21 19:17 | PC.NURSE ---
took over care from ISHA Robin, pt a&o, has dry cough, no belly retractions, provider into to discuss x-ray results and labs. Awaiting disposition.
--- NOTE | 2025-07-21 19:51 | PC.NURSE ---
pt medicated per sep, reviewed discharge instructions with pt. pt verbalized understanding. no sign of respiratory distress upon discharge.
[2025-07-21 19:55] VITALS: BP 134/73; PULSE 80; RESP 20; TEMP 36.6; O2SAT 98
== END 2025-07-21 19:56 | disposition home or self-care (01) ==
PROVIDERS: Physician Assistant; Emergency Provider Emergency Medicine Emergency Medical Services; PCP Nurse Practitioner Family
DX: J20.9 Acute bronchitis, unspecified (principal); R07.89 Other chest pain; Z03.818 Encounter for observation for suspected exposure to other biological agents ruled out
CPT/HCPCS: 71046; 87637; 87651; 99283; 99284

== ENCOUNTER → 2025-07-21 17:56 | Outpatient (BNV) | payer OTHER, SELFPAY | PROVIDERS: PCP Nurse Practitioner Family; Visit Provider Specialist | DX: R05.9 Cough, unspecified (principal) | CPT/HCPCS: 71046 ==